=== PATIENT | female | born 1965 | race Caucasian/White ===

== ENCOUNTER → 2020-05-29 14:54 | Outpatient (BNVA) | payer OTHER, SELFPAY | PROVIDERS: PCP Internal Medicine; Visit Provider Urology | DX: Z76.89 Persons encountering health services in other specified circumstances (principal) ==

== ENCOUNTER 2020-05-30 | Outpatient (REF) | payer OTHER, SELFPAY ==
[2020-06-16 05:47] LABS: Stone Source KIDNEY
== END 2020-05-30 00:01 | disposition home or self-care (01) ==
LOC: HO.LNP
PROVIDERS: Visit Provider Urology
DX: N20.0 Calculus of kidney (principal)
CPT/HCPCS: 82365; 88300

== ENCOUNTER 2020-06-19 06:06 | Day surgery (SDC) | payer OTHER, SELFPAY ==
[2020-06-12 15:46] VITALS: BMI 25.1
--- NOTE | 2020-06-19 06:11 | XR_ITS ---
EXAMINATION: XR ABDOMEN KUB CLINICAL INDICATION: Stones. COMPARISON: There is a punctate radiopaque density midpole left kidney TECHNIQUE: AP view of the abdomen. FINDINGS: Is a punctate 2 mm radiopaque density lower pole left kidney. There is moderate stool overlying the right kidney. Moderate stool is also visualized in the pelvis no organomegaly. No gross bony abnormality. The soft tissues are unremarkable. XR/XR KUB IMPRESSION: Likely 2 mm radiopaque stone lower pole left kidney. There is moderate stool overlying the right kidney limiting evaluation. Moderate constipation.
[2020-06-19 06:47] VITALS: BP 156/97; PULSE 85; RESP 16; TEMP 36.1; O2SAT 98
--- NOTE | 2020-06-19 07:22 | HO.ANESPROP2 ---
FORMERLY [facility] Past Medical History Medical History HTN (hypertension) Ocular migraine Seasonal allergies Surgical History Surgical History Hx of cervical discectomy Hx of section Hx of colonoscopy Social History Social History Smoking Status: Never smoker Use of substances other than those prescribed or required for medical reasons: No Advance Directives: No Advance Directives Information Provided: No Advance Directives on File: No Recently lost weight without trying: No Meds Allergies Allergy/AdvReac Type Severity Reaction Status Date / Time No Known Allergies Allergy Verified 06/19/20 06:30 Home Medications Medication Instructions Recorded Confirmed Type pyridoxine (vitamin B6) 1 tab PO DAILY 06/12/20 06/12/20 History Exam Exam Date and Time: June 19, 2020 0722 Height,Weight and Vital Signs: Height 5 ft 11 in Weight 81.647 kg Last Vital Signs Temp 97.0 F 06/19/20 06:47 Pulse 85 06/19/20 06:47 Resp 16 06/19/20 06:47 BP 156/97 H 06/19/20 06:47 Pulse Ox 98 06/19/20 06:47 Airway Mallampati Class: II TM Dist: >3cm Neck ROM: Full Assessment and Plan Assessment Anesthesia Assessment: Anesthesia Plan Discussed and Chart Reviewed Final Anesthetic Review NPO: Yes ASA Class: II Final Preanesthetic Review: No Changes in Pt Med Stat, Meds/Allgs Chart Reviewed, Consent Obtained/Reviewed and Anes Risks/Benef Reviewed Patient Risk: Low Procedure Risk: Low Assessment/Block/Sedation in SS: Assess/Block/Sedation-SS Anesthetic Plan Anesthetic Plan: MAC: Disposition: Standard PACU
--- NOTE | 2020-06-19 07:31 | MHC.SHP ---
Pre-Procedural Eval Section A The patient is an INPATIENT: No Changes since office visit: No Cold of Flu in the past 2 weeks, No New Medical Problems, No Changes in Medication and No Patient answered all questions The History & Physical has been completed within 30 days and I have reviewed it.: Yes Section B Chief Complaint: kidney stone Allergies: Allergies Allergy/AdvReac Type Severity Reaction Status Date / Time No Known Allergies Allergy Verified 06/19/20 06:30 Plan I have reviewed the history and physical and performed a pertinent physical examination on my patient. No changes have occurred unless specified. Left ESWL
--- NOTE | 2020-06-19 07:35 | PM.OP ---
Brief Operative Note Date of Service: 06/19/20 Pre-op diagnosis: Left renal stone Post-op diagnosis: same Procedure: Left ESWL Surgeon: Delmer Brunson MD Anesthesia: MAC Estimated blood loss (mL): 0 Pathology: none sent Condition: stable Disposition: same day
--- NOTE | 2020-06-19 07:43 | W.PM.OPN ---
Operative Note Operative Note Date of Service: 06/19/20 Narrative: PreOperative Diagnosis: left Renal stones Post Operative Diagnosis: left Renal stones Procedure: ESWL Surgeon: Dr Delmer Brunson Anesthesia: mac/sedation Indications for procedure: They understand ESWL may be a staged procedure and subsequent intervention may be required based on imaging after ESWL. They also understand there is a risk of bleeding, infection, damage to adjacent organs. Procedure: After informed consent was verified the patient was brought to the operating room and placed in a supine position. Anesthesia was performed per protocol. Safety pause time-out was performed. Imaging was in the room and laterality confirmed. ESWL was performed. The 1st 500 shocks were performed at 60 hertz. These were performed with increasing power. Once maximum power was reached the rate was increased to 180 hertz. A total of 2500 shocks were given. Fluoroscopy showed stone disintegration. They tolerated procedure well and was transferred to the recovery area upon completion.
[2020-06-19 08:05] VITALS: BP 124/76; PULSE 61; RESP 16; TEMP 36.6; O2SAT 96
[2020-06-19 08:20] VITALS: BP 132/79; PULSE 56; RESP 20; TEMP 36.6; O2SAT 97
--- NOTE | 2020-06-19 08:58 | HO.POSTANES ---
Post Anesthesia Evaluation Post Anesthesia Evaluation Vital Signs: Vital Signs Temp Pulse Resp BP Pulse Ox 06/19/20 08:20 97.9 F 56 20 132/79 97 06/19/20 08:05 97.8 F 61 16 124/76 96 06/19/20 06:47 97.0 F 85 16 156/97 H 98 Anesthesia: Monitored Mental Status: Awake Pain Control: Satisfactory Nausea/Vomiting: None Hydration: Adequate Anesthesia-Related Issues: No Anes. Related Issues
== END 2020-06-19 08:56 ==
LOC: HO.SSS 06:06
PROVIDERS: PCP Internal Medicine; Visit Provider Urology
PROC: (CPT 50590; principal; 2020-06-19 07:30)
DX: N20.0 Calculus of kidney (principal); I10 Essential (primary) hypertension; Z79.899 Other long term (current) drug therapy
CPT/HCPCS: 50590; 74018; J1885; J2405; J3010

== ENCOUNTER → 2020-07-24 14:27 | Outpatient (BNVA) | payer OTHER, SELFPAY | PROVIDERS: PCP Internal Medicine; Visit Provider Urology ==

== ENCOUNTER 2020-11-12 08:59 | Outpatient (REF) | payer OTHER, SELFPAY ==
[2020-11-12 10:27] LABS: MANUAL DIFF FLAG NO
[2020-11-12 10:29] LABS: Basophils Percent Auto 0.6 % (0-2); Eosinophils Absolute Auto 0.1 X10*3/uL (0.0-0.4); Eosinophils Percent Auto 2.3 % (0-4); Hematocrit 40.4 % (37-47); Hemoglobin 13.4 g/dl (12.0-16.0); Imm Gran Abs Auto 0.01 X10*3/uL (0.00-0.03); Imm Gran Pct Auto 0.2 % (0.0-0.4); Lymphocytes Percent Auto 41.7 % (20-40); Mean Corpuscular HGB Conc 33.2 g/dl (31.0-35.0); Mean Corpuscular Hemoglobin 29.4 pg (27.0-33.0); Mean Corpuscular Volume 88.6 fL (80-98); Mean Platelet Volume 9.7 fL (9.4-12.3); Monocytes Absolute Auto 0.4 X10*3/uL (0.1-1.2); Monocytes Percent Auto 7.9 % (2-11); Neutrophils Absolute Auto 2.2 X10*3/uL (2.0-8.3); Neutrophils Percent Auto 47.3 % (45-73); Platelet Count 269 X10*3/uL (160-400); Red Blood Count 4.56 X10*6/uL (4.20-5.50); White Blood Count 4.7 X10*3/uL (4.8-10.8)
[2020-11-12 11:00] LABS: Alanine Aminotransferase 17 U/L (0-31); Albumin Level 4.2 g/dL (3.5-5.0); Alkaline Phosphatase 99 U/L (39-117); Anion Gap 12 (12-20); Aspartate Amino Transferase 25 U/L (5-31); Bilirubin Total 0.9 mg/dL (0.0-1.0); Blood Urea Nitrogen 15 mg/dL (9-16); Calcium 9.1 mg/dL (8.4-10.2); Carbon Dioxide 25 mmol/L (22-29); Chloride 108 mmol/L (96-108); Cholesterol 193 mg/dL; Estimated Glomerular Filt Rate > 60; Glucose Fasting 98 mg/dL (60-99); HDL Cholesterol 53 mg/dL; LDL Cholesterol Calculated 117 mg/dl; Potassium 3.8 mmol/L (3.3-5.1); Sodium 141 mmol/L (135-145); Total Protein 6.8 g/dL (6.5-8.0); Triglycerides 117 mg/dL
== END 2020-11-12 09:00 | disposition home or self-care (01) ==
LOC: HO.10HDL 08:59
PROVIDERS: PCP Internal Medicine; Visit Provider Internal Medicine
DX: Z00.00 Encounter for general adult medical examination without abnormal findings (principal)
CPT/HCPCS: 36415; 80053; 80061; 85025

== ENCOUNTER 2021-01-15 09:57 | Outpatient (REF) | payer OTHER, SELFPAY ==
--- NOTE | ~2021-01-15 | US_ITS ---
EXAMINATION: US RETROPERITONEAL LIMITED (RENAL ONLY) CLINICAL INFORMATION: Calculus of kidney. COMPARISON: KUB 06/19/2020. TECHNIQUE: Real-time imaging of the kidneys. FINDINGS: RIGHT KIDNEY: 13.0 x 4.1 x 5.5 cm (SAG x AP x TRV). The kidney is normal in size, contour, and echogenicity. Renal cortical thickness is normal. No calculi or focal parenchymal lesions. No hydronephrosis. LEFT KIDNEY: 12.8 x 6.0 x 5.2 cm (SAG x AP x TRV). The kidney is normal in size, contour, and echogenicity. Renal cortical thickness is normal. No calculi or focal parenchymal lesions. No hydronephrosis. US/US renal BI IMPRESSION: No stone seen.
== END 2021-01-15 09:58 | disposition home or self-care (01) ==
LOC: HO.US 09:57
PROVIDERS: PCP Internal Medicine; Visit Provider Urology
DX: N20.0 Calculus of kidney (principal)
CPT/HCPCS: 76775

== ENCOUNTER → 2021-03-07 14:13 | Outpatient (BNVA) | payer OTHER, SELFPAY | PROVIDERS: Visit Provider Urology ==

== ENCOUNTER 2021-08-21 16:29 | Outpatient (REF) | payer OTHER, SELFPAY ==
--- NOTE | ~2021-08-21 | US_ITS ---
EXAMINATION: US RETROPERITONEAL LIMITED (RENAL ONLY) CLINICAL INFORMATION: Calculus of kidney. COMPARISON: Renal ultrasound 01/15/2021. X-ray KUB 06/19/2020. TECHNIQUE: Real-time imaging of the kidneys. FINDINGS: RIGHT KIDNEY: 12.1 x 4.9 x 5.9 cm (SAG x AP x TRV). The kidney is normal in size, contour, and echogenicity. Renal cortical thickness is normal. No calculi or focal parenchymal lesions. No hydronephrosis. LEFT KIDNEY: 12.1 x 6.4 x 5.1 cm (SAG x AP x TRV). The kidney is normal in size, contour, and echogenicity. Renal cortical thickness is normal. No focal parenchymal lesions. Mild fullness of the pelvicalyceal system is present. There are 2 echogenic foci identified, both at the superior pole, measures 0.2 x 0.3 and 0.3 x 0.4 cm respectively, most consistent with nonobstructing calculi. US/US renal BI IMPRESSION: 1. Two sub-5 mm echogenic foci are noted at the superior pole of the left kidney, most consistent with nonobstructing calculi. Mild fullness of the left renal collecting system is also noted.. 2. Sonographically unremarkable right kidney.
== END 2021-08-21 16:30 | disposition home or self-care (01) ==
LOC: HO.US 16:29
PROVIDERS: PCP Internal Medicine; Visit Provider Urology
DX: N20.0 Calculus of kidney (principal)
CPT/HCPCS: 76775

== ENCOUNTER → 2021-09-03 12:48 | Outpatient (BNVA) | payer OTHER, SELFPAY | PROVIDERS: PCP Internal Medicine; Visit Provider Urology | DX: Z13.89 Encounter for screening for other disorder (principal) ==

== ENCOUNTER 2022-01-15 06:39 | Outpatient (REF) | payer OTHER, SELFPAY ==
[2022-01-15 06:56] LABS: MANUAL DIFF FLAG NO
[2022-01-15 07:37] LABS: Basophils Absolute Auto 0.1 X10*3/uL (0.0-0.2); Basophils Percent Auto 0.9 % (0-2); Eosinophils Absolute Auto 0.2 X10*3/uL (0.0-0.4); Eosinophils Percent Auto 3.2 % (0-4); Hematocrit 41.2 % (37.0-47.0); Hemoglobin 13.8 g/dl (12.0-16.0); Imm Gran Abs Auto 0.02 X10*3/uL (0.00-0.03); Imm Gran Pct Auto 0.4 % (0.0-0.4); Lymphocytes Absolute Auto 2.2 X10*3/uL (1.2-4.9); Lymphocytes Percent Auto 40.4 % (20-40); Mean Corpuscular HGB Conc 33.5 g/dl (31.0-35.0); Mean Corpuscular Hemoglobin 29.5 pg (27.0-33.0); Mean Platelet Volume 9.3 fL (9.4-12.3); Monocytes Absolute Auto 0.5 X10*3/uL (0.1-1.2); Monocytes Percent Auto 8.4 % (2-11); Neutrophils Absolute Auto 2.5 x10*3/uL (2.0-8.3); Neutrophils Percent Auto 46.7 % (45-73); Platelet Count 271 X10*3/uL (160-400); Red Blood Count 4.68 X10*6/uL (4.20-5.50); Red Cell Distribution Width 12.8 % (11.0-16.0); White Blood Count 5.4 X10*3/uL (4.8-10.8)
[2022-01-15 07:55] LABS: Alanine Aminotransferase 20 U/L (0-31); Albumin Level 4.1 g/dL (3.5-5.0); Alkaline Phosphatase 99 U/L (39-117); Anion Gap 14 (12-20); Aspartate Amino Transferase 26 U/L (5-31); Blood Urea Nitrogen 14 mg/dL (9-16); Carbon Dioxide 26 mmol/L (22-29); Chloride 106 mmol/L (96-108); Cholesterol 208 mg/dL; Estimated Glomerular Filt Rate > 60; Glucose Fasting 106 mg/dL (60-99); HDL Cholesterol 56 mg/dL; LDL Cholesterol Calculated 125 mg/dl; Potassium 3.7 mmol/L (3.3-5.1); Sodium 142 mmol/L (135-145); Triglycerides 137 mg/dL
[2022-01-15 08:04] LABS: Vitamin D 25-OH Total 35.2 ng/mL (>30)
== END 2022-01-15 06:40 | disposition home or self-care (01) ==
LOC: HO.LAB 06:39
PROVIDERS: PCP Internal Medicine; Visit Provider Internal Medicine
DX: Z00.00 Encounter for general adult medical examination without abnormal findings (principal); E55.9 Vitamin D deficiency, unspecified; N20.0 Calculus of kidney
CPT/HCPCS: 36415; 80053; 80061; 82306; 85025

== ENCOUNTER 2022-03-12 15:49 | Outpatient (REF) | payer OTHER, SELFPAY ==
--- NOTE | ~2022-03-12 | US_ITS ---
EXAMINATION: US RETROPERITONEAL LIMITED (RENAL ONLY) CLINICAL INFORMATION: Calculus of kidney. COMPARISON: Renal ultrasound 08/21/2021 and 01/15/2021. X-ray KUB 06/19/2020. TECHNIQUE: Real-time imaging of the kidneys. FINDINGS: RIGHT KIDNEY: 11.8 x 5.5 x 5.3 cm (SAG x AP x TRV). The kidney is normal in size, contour, and echogenicity. Renal cortical thickness is normal. No calculi or focal parenchymal lesions. No hydronephrosis. LEFT KIDNEY: 12.0 x 6.4 x 6.0 cm (SAG x AP x TRV). The kidney is normal in size, contour, and echogenicity. Renal cortical thickness is normal. No focal parenchymal lesions or hydronephrosis. 5 mm nonobstructing upper pole renal stone. Fullness of the left renal collecting system may reflect peripelvic renal cysts, alternatively pelviectasis. US/US renal BI IMPRESSION: 1. 5 mm nonobstructing left upper pole renal stone unchanged. 2. Fullness of the left renal collecting system may reflect peripelvic renal cysts, alternatively pelviectasis.
== END 2022-03-12 15:50 | disposition home or self-care (01) ==
LOC: HO.US 15:49
PROVIDERS: Visit Provider Internal Medicine
DX: N20.0 Calculus of kidney (principal)
CPT/HCPCS: 76775

== ENCOUNTER 2022-12-24 09:48 | Outpatient (REF) | payer SELFPAY ==
[2022-12-24 10:45] LABS: MANUAL DIFF FLAG NO
[2022-12-24 10:53] LABS: Basophils Absolute Auto 0.1 X10*3/uL (0.0-0.2); Basophils Percent Auto 0.9 % (0-2); Eosinophils Absolute Auto 0.1 X10*3/uL (0.0-0.4); Eosinophils Percent Auto 1.7 % (0-4); Hematocrit 42.4 % (37.0-47.0); Lymphocytes Absolute Auto 1.6 X10*3/uL (1.2-4.9); Lymphocytes Percent Auto 29.4 % (20-40); Mean Platelet Volume 9.9 fL (9.4-12.3); Monocytes Absolute Auto 0.4 X10*3/uL (0.1-1.2); Neutrophils Absolute Auto 3.3 x10*3/uL (2.0-8.3); Platelet Count 264 X10*3/uL (160-400); Red Blood Count 4.82 X10*6/uL (4.20-5.50); Red Cell Distribution Width 13.1 % (11.0-16.0); White Blood Count 5.4 X10*3/uL (4.8-10.8)
[2022-12-24 10:54] LABS: Appearance Urine Clear; Color Urine Yellow; Glucose Urine UA Negative (Negative); Leukocyte Esterase Urine Negative (Negative); Nitrite Urine Negative (Negative); Specific Gravity - Urine <= 1.005 (1.005-1.025); Urine Blood Negative (Negative); Urine Ketones Negative (Negative); Urine Protein Negative (Neg-Trace)
[2022-12-24 11:08] LABS: Alanine Aminotransferase 18 U/L (0-31); Albumin Level 4.2 g/dL (3.5-5.0); Alkaline Phosphatase 107 U/L (39-117); Anion Gap 12 (12-20); Aspartate Amino Transferase 24 U/L (5-31); Bilirubin Total 1.1 mg/dL (0.0-1.0); Blood Urea Nitrogen 14 mg/dL (9-16); Calcium 10.1 mg/dL (8.4-10.2); Carbon Dioxide 28 mmol/L (22-29); Chloride 105 mmol/L (96-108); Cholesterol 223 mg/dL; Estimated Glomerular Filt Rate > 60; Glucose Fasting 104 mg/dL (60-99); HDL Cholesterol 57 mg/dL; LDL Cholesterol Calculated 142 mg/dl; Potassium 3.5 mmol/L (3.3-5.1); Sodium 141 mmol/L (135-145); Total Protein 7.7 g/dL (6.5-8.0); Triglycerides 121 mg/dL
== END 2022-12-24 09:49 | disposition home or self-care (01) ==
LOC: HO.10HDL 09:48
PROVIDERS: Visit Provider Internal Medicine
DX: E78.00 Pure hypercholesterolemia, unspecified (principal); J30.1 Allergic rhinitis due to pollen; Z87.442 Personal history of urinary calculi
CPT/HCPCS: 36415; 80053; 80061; 81003; 85025

== ENCOUNTER 2023-03-12 13:58 | Outpatient (REF) | payer OTHER, SELFPAY ==
[2023-03-12 14:09] LABS: MANUAL DIFF FLAG NO
[2023-03-12 14:21] LABS: Basophils Percent Auto 0.6 % (0-2); Eosinophils Absolute Auto 0.4 X10*3/uL (0.0-0.4); Eosinophils Percent Auto 5.3 % (0-4); Hematocrit 41.6 % (37.0-47.0); Hemoglobin 14.1 g/dl (12.0-16.0); Imm Gran Abs Auto 0.02 X10*3/uL (0.00-0.03); Imm Gran Pct Auto 0.3 % (0.0-0.4); Lymphocytes Absolute Auto 1.6 X10*3/uL (1.2-4.9); Lymphocytes Percent Auto 22.7 % (20-40); Mean Corpuscular HGB Conc 33.9 g/dl (31.0-35.0); Mean Corpuscular Hemoglobin 30.2 pg (27.0-33.0); Mean Corpuscular Volume 89.1 fL (80.0-98.0); Mean Platelet Volume 9.6 fL (9.4-12.3); Monocytes Absolute Auto 0.5 X10*3/uL (0.1-1.2); Monocytes Percent Auto 6.7 % (2-11); Neutrophils Absolute Auto 4.5 x10*3/uL (2.0-8.3); Neutrophils Percent Auto 64.4 % (45-73); Platelet Count 249 X10*3/uL (160-400); Red Blood Count 4.67 X10*6/uL (4.20-5.50); Red Cell Distribution Width 12.9 % (11.0-16.0)
[2023-03-12 14:56] LABS: Alanine Aminotransferase 16 U/L (0-31); Albumin Level 4.3 g/dL (3.5-5.0); Alkaline Phosphatase 105 U/L (39-117); Anion Gap 10 (12-20); Aspartate Amino Transferase 23 U/L (5-31); Bilirubin Total 0.7 mg/dL (0.0-1.0); Blood Urea Nitrogen 12 mg/dL (9-16); C Reactive Protein 0.48 mg/dL (< or = 0.50); Calcium 9.9 mg/dL (8.4-10.2); Carbon Dioxide 28 mmol/L (22-29); Chloride 106 mmol/L (96-108); Estimated Glomerular Filt Rate > 60; Glucose Random 116 mg/dL (60-115); Potassium 3.3 mmol/L (3.3-5.1); Sodium 141 mmol/L (135-145); Total Protein 7.6 g/dL (6.5-8.0)
[2023-03-16 01:44] LABS: Lyme Abs Screen <0.90 index
== END 2023-03-12 13:59 | disposition home or self-care (01) ==
LOC: HO.LAB 13:58
PROVIDERS: PCP Internal Medicine; Visit Provider Internal Medicine
DX: R21 Rash and other nonspecific skin eruption (principal); T14.8XXA Other injury of unspecified body region, initial encounter; W57.XXXA Bitten or stung by nonvenomous insect and other nonvenomous arthropods, initial encounter
CPT/HCPCS: 36415; 80053; 82550; 85025; 86140; 86617; 86618

== ENCOUNTER 2023-04-06 15:03 | Outpatient (REF) | payer OTHER, SELFPAY ==
--- NOTE | ~2023-04-06 | XR_ITS ---
EXAMINATION: XR ABDOMEN KUB CLINICAL INFORMATION: Calculus of kidney. COMPARISON: Renal ultrasound 03/12/2022. TECHNIQUE: Two AP views of the abdomen. FINDINGS: Levoscoliosis of the lumbar spine with degenerative changes. Moderate to large amount of stool in the colon. Nonobstructive bowel gas pattern. 5 mm calculus overlies the interpolar region of the left kidney. Previous ultrasound demonstrated a 5 mm left renal calculus. Limited visualization of the bilateral kidneys due to overlying bowel. XR/XR KUB IMPRESSION: 5 mm calculus overlies the interpolar region of the left kidney. Previous ultrasound demonstrated a 5 mm left renal calculus. Limited visualization of the bilateral kidneys due to overlying bowel.
== END 2023-04-06 15:04 | disposition home or self-care (01) ==
LOC: HO.XRAY 15:03
PROVIDERS: PCP Internal Medicine; Visit Provider Urology
DX: N20.0 Calculus of kidney (principal)
CPT/HCPCS: 74018

== ENCOUNTER 2023-04-16 08:39 | Outpatient (AMB) | payer OTHER, SELFPAY ==
--- OUTSIDE RECORDS SUMMARY | 2023-04-16 08:41 | XMS_ITS | Continuity of Care Document ---
Author Name Unknown Organization [facility] ter Address [address] [place] [id number]- Care Team Providers Care Beater Operator Name Role Phone Damian Sanchez MD Primary Care Physician Encounter [facility] [place] Date(s): 03/12/20 - 03/13/[address] [address]- [facility] Discharge Disposition: A-D/C Home Attending Physician: Abril Moreno MD Admitting Physician: Axel KING, Amelia Rosas Referring Physician: Not on Staff, Referring MD Allergies, Adverse Reactions, Alerts Substance Reaction Severity Status NKA Active Immunizations Given and Recorded Vaccine Date Status Refusal Reason tetanus/diphtheria/pertussis, acel(Tdap) 07/09/09 Given Medications Keflex monohydrate 500 mg oral capsule 1 capsule = 500 mg, By Mouth, 4 times a day, for 5 days, # 20 capsule, 0 Refills, Acute 03/18/20 11:58:00 EST, 03/13/20 11:58:00 EDT, Capsule, [facility], 179, cm, 03/13/20 11:27:00EDT, Height, 79.9, kg, 03/12/20 23:42:00 EDT, Dry Weight Start Date: 03/13/20 Stop Date: 03/18/20 Status: Ordered levocetirizine 5 mg oral tablet 1 tablet = 5 mg, By Mouth, Daily in PM, # 30 tablet, 0 Refills, Maintenance, 03/12/20 23:59:00 EDT,Tablet Start Date: 03/12/20 Status: Ordered Nasacort Allergy 24HR 55 mcg/inh nasal spray 1 sprays, Nares, Both, Daily, 0 Refills, Maintenance, 03/13/20 0:00:00 EDT Start Date: 03/13/20 Status: Ordered No Home Meds Maintenance, 03/12/20 23:26:00 EDT, Supply Start Date: 03/12/20 Status: Ordered oxyCODONE 5 mg oral tablet 5 mg, 1, tablet, By Mouth, Every 6 hours, PRN, for 3 days, # 12 tablet, Refills 0, Tot. Refills 0, Acute 03/16/20 11:59:00 EDT, as needed for pain, 03/13/20 11:59:00 EDT, Route to Pharmacy Electronically, [facility], Partial fill upon pa... Start Date: 03/13/20 Stop Date: 03/16/20 Status: Ordered tamsulosin 0.4 mg oral capsule 0.4 mg, 1, capsule, By Mouth, Daily, # 30 capsule, Refills 0, Tot. Refills 0, Maintenance, 03/13/2011:58:00 EDT, Route to Pharmacy Electronically, [facility], 179, cm, 03/13/20 11:27:00 EDT, Height, 79.9, kg, 03/12/20 23:42:00 EDT, Dry... Start Date: 03/13/20 Status: Ordered Procedures Procedure Date Related Diagnosis Body Site Status Caesarean delivery x2 Com pleted Vital Signs Most recent to oldest [Reference Range]: 1 2 3 Height 179 cm (03/13/20 11:27 AM) 179 cm (03/13/20 8:23 AM) 179 cm (03/13/20 5:26 AM) Weight 79.9 kg (03/12/20 11:42 PM) 84.5 kg (03/12/20 11:41 PM) 84.6 kg (03/12/20 3:10 PM) Oxygen Saturation [94-100 %] 99 % (03/13/20 11:27 AM) 99 % (03/13/20 8:23 AM) 98 % (03/13/20 5:26 AM) Pulse Rate [55-90 bpm] 74 bpm (03/13/20 11:27 AM) 84 bpm (03/13/20 8:23 AM) 65 bpm (03/13/20 5:26 AM) Body Mass Index [18.5-24.99] 24.94 (03/12/20 11:42 PM) 26.4 *H* (03/12/20 2:37 PM) Blood Pressure [90-138/55-84 mm Hg] 141/79mm Hg *H* (03/13/20 11:27 AM) 146/74mm Hg *H* (03/13/20 8:23 AM) 149/76mm Hg *H* (03/13/20 5:26 AM) Respiratory Rate [16-30 br/min] 18 br/min (03/13/20 12:33 PM) 20 br/min (03/13/20 11:27 AM) 18 br/min (03/13/20 9:00 AM) Temperature [96.8-100.4 DegF] 98.0 DegF (03/13/20 11:27 AM) 98.7 DegF (03/13/20 8:23 AM) 98.2 DegF (03/13/20 5:26 AM) Mode of Delivery (Oxygen) Room air (03/13/20 11:27 AM) Room air (03/13/20 8:23 AM) Room air (03/13/20 5:26 AM) Blood pressure sites Arm, right (03/13/20 11:27 AM) Arm, right (03/13/20 8:23 AM) Arm, right (03/13/20 5:26 AM) Temperature Route Oral (03/13/20 11:27 AM) Oral (03/13/20 8:23 AM) Oral (03/13/20 5:26 AM) Dry Weight 79.9 kg (03/12/20 11:42 PM) 84.6 kg (03/12/20 3:10 PM) 84.6 kg (03/12/20 2:37 PM) Weight Obtained Via Patient/family stated (03/12/20 11:42 PM) Bed scale (03/12/20 11:41 PM) Standing scale (03/12/20 2:37 PM) Dry Weight Obtained Via Patient/family stated (03/12/20 11:42 PM) Standing scale (03/12/20 2:37 PM) Social History Social History Type Response Smoking Status Never (less than 100 in lifetime) entered on: 03/12/20 Sex
--- NOTE | 2023-04-16 08:55 | A.OFFVIS_ITS ---
Intake Intake Visit Reasons: discuss imaging Allergies No Known Allergies Allergy (Verified 03/23/22 16:02) Medication List - Last Reconciled 04/16/23 by Delmer Brunson MD allopurinol 100 mg PO DAILY 90 days pyridoxine (vitamin B6) 100 mg PO DAILY 90 days sodium fluoride-pot nitrate 1.1-5 % (PreviDent 5000 Enamel Protect) dental BEDTIME tamsulosin 0.4 mg PO BEDTIME tramadol 50 mg PO Q6H PRN HPI HPI Comments History of Present Illness Details Ann is a very pleasant female. She is a patient of Dr. Sanchez. She is seen for the following urologic conditions - nephrolithiasis Telemedicine Evaluation 15 min Consultation Stratus[employer] Corby Video attempted Small stone remains on left side on KUB Continue vitamin B6 Twelve month follow-up US Nephrolithiasis Stopped beets which may have been cause Urolithiasis was diagnosed - February 2020 after ER visit The patient previously had kidney stones whose composition w - May 2020 mixed calcium oxalate 80% monohydrate Laboratory investigations include - no recent labs 24 Hour urine evaluation - none on file Prior treatment(s) include - June 2020 ESWL left side Prior imaging includes - a CT - stone protocol 03/05 inflammati on with passage of stone on left, right punctate stones, 6 mm stone mid pole left - 03/06 renal ultrasound no stones seen - 09/05 renal ultrasound question of smal l stone left side - 03/07 renal ultrasound 5 mm left side - 03/08 Current therapeutic plan will be - dietary changes, fluid changes, vitami n B6 PFSH Medical History HTN (hypertension) Ocular migraine Seasonal allergies Surgical History Hx of cervical discectomy Hx of section Hx of colonoscopy Assessment & Plan Assessment & Plan (1) Nephrolithiasis: Code(s): N20.0 - Calculus of kidney Plan 12 month Follow-up ultrasound Orders: Orders US renal BI 364 Days N20.0 - Calculus of kidney Medications: Changed From pyridoxine (vitamin B6) 100 mg PO DAILY 90 days 90 tabs 3RF N20.0 - Calculus of kidney To pyridoxine (vitamin B6) 50 mg PO DAILY 90 tabs 3RF 90 days N20.0 - Calculus of kidney Patient Instructions: Imaging studies, laboratory and physical exam results were discussed and reviewed in detail. No major barriers to patient understanding were identified. An opportunity to ask questions regarding the treatment plan was provided. All questions were answered. The patient expressed understanding and agreement with the above treatment plan. The patient is aware they should contact our office by phone for worsening of their current condition or the appearance of new urologic symptoms. Compliance is encouraged with any medications and followup testing that is ordered. It is a privilege to participate in the urologic care of your patient. If you have any questions or concerns regarding treatment for the above conditions, or other urologic issues, please do not hesitate to contact me. The office telephone contact is [phone]. This note is constructed using voice recognition software. While every effort has been made to ensure accuracy tire fixer errors may have been included. Yours sincerely, Dr Delmer Brunson MD, RAKESH [facility] - Urology Providers of Expert, Compassionate Care for the Genitourinary System Telehealth Telehealth Location of provider rendering services: practice address Location of patient: address on file Patient Identification confirmed using: Name, : Yes Telehealth method: video Patient verbally consented to treatment: Yes Patient verbally consented to billing insurance company: Yes Patient informed of any privacy concerns related to visit: Yes Coding Level of Care Code Tele Est Pt Level 4 (64180) Diagnoses Nephrolithiasis N20.0
== END 2023-04-16 09:22 | disposition home or self-care (01) ==
LOC: HO.HUSH 08:39
PROVIDERS: PCP Internal Medicine; Visit Provider Urology
DX: N20.0 Calculus of kidney (principal)
CPT/HCPCS: 99213

== ENCOUNTER → 2023-04-16 08:39 | Outpatient (BNVA) | payer OTHER, SELFPAY | PROVIDERS: PCP Internal Medicine; Visit Provider Urology ==

== ENCOUNTER 2023-09-02 12:50 | Day surgery (SDC) | payer OTHER, SELFPAY ==
[2023-08-27 14:02] VITALS: BMI 25.4
[2023-09-02 13:29] VITALS: BMI 25.1
[2023-09-02 13:36] VITALS: BP 175/91; PULSE 79; RESP 16; TEMP 36.6; O2SAT 99
--- NOTE | 2023-09-02 13:56 | P.CONAN_ITS ---
FORMERLY [facility] Active Problems Active Problems: All Active Problems Nephrolithiasis (Acute) Past Medical History Medical History Renal calculi Ocular migraine Seasonal allergies HTN (hypertension) Family History Family history of problems with anesthesia: No Surgical History Surgical History Hx of lithotripsy Hx of colonoscopy Hx of cervical discectomy Hx of section History of Problems with Anesthesia: No Social History Social History (Updated 08/27/23 @ 14:03 by Veda Goodman RN) Patient Tobacco Use Status: Never used Tobacco Use of substances other than those prescribed or required for medical reasons: No Are you DNR?: No Advance Directives: No Advance Directives Information Provided: Yes Meds Allergies Allergy/AdvReac Type Severity Reaction Status Date / Time No Known Allergies Allergy Verified 09/02/23 13:27 Active Medications: Current Medications Sodium Biphosphate/Sodium Phosphate (Sodium Phosphate,Harlan-Dibasic 133 Ml Enema) 133 ml WI ONCE PRN PRN Reason: Poor Colonoscopy Prep Results Home Medications ?Medication ?Instructions ?Recorded ?Confirmed ?Last Taken ?Type pyridoxine (vitamin B6) 50 mg 50 mg PO DAILY 08/27/23 09/02/23 Unknown History tablet Exam Height,Weight and Vital Signs: Height 5 ft 11 in Weight 81.647 kg Last Vital Signs Temp 97.8 F 09/02/23 13:36 Pulse 79 09/02/23 13:36 Resp 16 09/02/23 13:36 BP 175/91 H 09/02/23 13:36 Pulse Ox 99 09/02/23 13:36 O2 Del Method Room Air 09/02/23 13:36 Airway Mallampati Class: III TM Dist: >3cm Neck ROM: Full Assessment and Plan Assessment Anesthesia Assessment: Anesthesia Plan Discussed and Chart Reviewed Final Anesthetic Review Family History of Problems with Anesthesia: No History of Problems with Anesthesia: No NPO: Yes ASA Class: II Final Preanesthetic Review: No Changes in Pt Med Stat, Meds/Allgs Chart Reviewed, Consent Obtained/Reviewed and Anes Risks/Benef Reviewed Patient Risk: Low Procedure Risk: Low Anesthetic Plan Anesthetic Plan: TIVA Disposition: Standard PACU
--- NOTE | 2023-09-02 15:10 | PM.OP ---
Brief Operative Note Date of Service: 09/02/23 Pre-op diagnosis: Screening Post-op diagnosis: other (Diverticulosis) Procedure: Colonoscopy to the cecum and TI Surgeon: Ismael Chun MD Anesthesia: MAC Was an Therapeutic Recreation Leader used for this Procedure?: No Estimated blood loss (mL): 0 Pathology: none sent Condition: stable Disposition: PACU
[2023-09-02 15:12] VITALS: BP 126/80; PULSE 72; RESP 18; TEMP 36.4; O2SAT 99
[2023-09-02 15:30] VITALS: BP 159/98; PULSE 68; RESP 20; TEMP 36.2; O2SAT 98
--- NOTE | 2023-09-02 17:55 | OP_ITS ---
DATE OF SERVICE: 09/02/2023 SURGEON: Ismael Chun MD INDICATIONS: The patient presents for evaluation of colorectal cancer screening and family history of colon cancer. Full consent has been obtained from her for this, including risks of bleeding and perforation. PREOPERATIVE DIAGNOSIS: POSTOPERATIVE DIAGNOSIS: Colorectal cancer screening, family history of colon cancer, sigmoid diverticulosis, and internal hemorrhoids. PROCEDURE PERFORMED: Colonoscopy to cecum and terminal ileum. ESTIMATED BLOOD LOSS: COMPLICATIONS: ANESTHESIA: Monitored anesthesia care. ASSISTANTS: SPECIMENS: PREOPERATIVE DIAGNOSES: Colorectal cancer screening and family history of colon cancer. DESCRIPTION OF PROCEDURE: The patient was placed in left lateral decubitus position. The digital rectal exam revealed no abnormalities. The Olympus video pediatric colonoscope was then entered into the rectum and advanced easily to the cecum. Once in the cecum, I did identify normal-appearing cecal pouch with appendiceal orifice and a normal-appearing ileocecal valve. The terminal ileum was cannulated and appeared normal. The scope was withdrawn back in the colon. The entire cecum and ileocecal valve appeared normal. The scope was slowly withdrawn assessing all mucosal surfaces carefully. Preparation was excellent. I did not visualize any sign of polyps, colitis, nor angiodysplasia. There was a mild amount of sigmoid diverticulosis. In the rectum, the scope was retroflexed, visualizing internal hemorrhoids, but no other pathology. The rectal mucosa appeared normal. The scope was straightened and withdrawn from the patient. She tolerated the procedure well and was returned to the recovery area in stable condition. IMPRESSION: 1. Mild sigmoid diverticulosis. 2. Internal hemorrhoids. PLAN: Given her family history, I would recommend a followup coloscopy in 5 years for further screening. She will, otherwise, see me on a p.r.n. basis. MD MYCHAL Huddleston/CALLIE / [phone]
== END 2023-09-02 15:45 | disposition home or self-care (01) ==
PROVIDERS: PCP Internal Medicine; Visit Provider Internal Medicine
PROC: 0DJD8ZZ Inspection of Lower Intestinal Tract, Via Natural or Artificial Opening Endoscopic (ICD-10-PCS; CPT 45378; principal; 2023-09-02 14:00)
DX: Z12.11 Encounter for screening for malignant neoplasm of colon (principal); K57.30 Diverticulosis of large intestine without perforation or abscess without bleeding; K64.8 Other hemorrhoids; Z87.19 Personal history of other diseases of the digestive system; Z80.0 Family history of malignant neoplasm of digestive organs
CPT/HCPCS: 45378; J2704

== ENCOUNTER 2023-12-27 10:22 | Outpatient (REF) | payer BC, SELFPAY ==
[2023-12-27 13:14] LABS: MANUAL DIFF FLAG NO
[2023-12-27 13:20] LABS: Basophils Absolute Auto 0.1 X10*3/uL (0.0-0.2); Basophils Percent Auto 1.1 % (0-2); Eosinophils Absolute Auto 0.1 X10*3/uL (0.0-0.4); Eosinophils Percent Auto 1.4 % (0-4); Hematocrit 42.8 % (37.0-47.0); Hemoglobin 14.2 g/dl (12.0-16.0); Imm Gran Abs Auto 0.01 X10*3/uL (0.00-0.03); Imm Gran Pct Auto 0.2 % (0.0-0.4); Lymphocytes Absolute Auto 1.9 X10*3/uL (1.2-4.9); Lymphocytes Percent Auto 30.5 % (20-40); Mean Corpuscular HGB Conc 33.2 g/dl (31.0-35.0); Mean Corpuscular Hemoglobin 29.5 pg (27.0-33.0); Mean Corpuscular Volume 88.8 fL (80.0-98.0); Mean Platelet Volume 9.4 fL (9.4-12.3); Monocytes Absolute Auto 0.4 X10*3/uL (0.1-1.2); Neutrophils Absolute Auto 3.8 x10*3/uL (2.0-8.3); Neutrophils Percent Auto 60.8 % (45-73); Platelet Count 305 X10*3/uL (160-400); Red Blood Count 4.82 X10*6/uL (4.20-5.50); Red Cell Distribution Width 12.7 % (11.0-16.0); White Blood Count 6.3 X10*3/uL (4.8-10.8)
[2023-12-27 13:41] LABS: Alanine Aminotransferase 18 U/L (0-31); Albumin Level 4.2 g/dL (3.5-5.0); Alkaline Phosphatase 92 U/L (39-117); Anion Gap 11 (12-20); Aspartate Amino Transferase 22 U/L (5-31); Bilirubin Total 0.7 mg/dL (0.0-1.0); Blood Urea Nitrogen 14 mg/dL (9-16); Calcium 9.2 mg/dL (8.4-10.2); Carbon Dioxide 28 mmol/L (22-29); Chloride 106 mmol/L (96-108); Cholesterol 214 mg/dL (<200); Estimated Glomerular Filt Rate > 60; Glucose Fasting 108 mg/dL (60-99); HDL Cholesterol 55 mg/dL (>40); LDL Cholesterol Calculated 128 mg/dL (<100); Potassium 3.4 mmol/L (3.3-5.1); Sodium 142 mmol/L (135-145); Total Protein 7.6 g/dL (6.5-8.0); Triglycerides 155 mg/dL (<150)
[2023-12-27 13:47] LABS: Thyroid Stimulating Hormone 1.19 uIU/mL (0.32-4.0); Vitamin D 25-OH Total 48.8 ng/mL (>30)
== END 2023-12-27 10:23 | disposition home or self-care (01) ==
LOC: HO.10HDL 10:22
PROVIDERS: Visit Provider Internal Medicine
DX: E55.9 Vitamin D deficiency, unspecified (principal); I10 Essential (primary) hypertension
CPT/HCPCS: 36415; 80053; 80061; 82306; 84439; 84443; 85025

== ENCOUNTER 2024-04-10 15:22 | Outpatient (REF) | payer BC, SELFPAY | END 2024-04-10 15:23 | disposition home or self-care (01) | LOC: HO.US 15:22 | PROVIDERS: PCP Internal Medicine; Visit Provider Urology | DX: N20.0 Calculus of kidney (principal) | CPT/HCPCS: 76775 ==

== ENCOUNTER 2024-04-18 14:53 | Outpatient (AMB) | payer BC, SELFPAY ==
--- NOTE | 2024-04-18 14:55 | A.OFFVIS_ITS ---
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 She is a patient of Dr. Sanchez. She is seen for the following urologic conditions - nephrolithiasis Small stone remains on left side on ultrasound Continue vitamin B6 Twelve month follow-up US Nephrolithiasis Stopped beets which may have been cause Urolithiasis was diagnosed - February 2020 after ER visit The patient previously had kidney stones whose composition w - May 2020 mixed calcium oxalate 80% monohydrate Laboratory investigations include - no recent labs 24 Hour urine evaluation - none on file Prior treatment(s) include - June 2020 ESWL left side Prior imaging includes - a CT - stone protocol 03/05 inflammation with passage of stone on left, right punctate stones, 6 mm stone mid pole left - 03/06 renal ultrasound no stones seen - 09/05 renal ultrasound question of small stone left side - 03/07 renal ultrasound 5 mm left side - 03/09 renal ultrasound 4 mm left Current therapeutic plan will be - dietary changes, fluid changes, vitamin B6 PFSH Medical History Renal calculi Ocular migraine Seasonal allergies HTN (hypertension) Surgical History Hx of lithotripsy Hx of colonoscopy Hx of cervical discectomy Hx of section Social History (Updated 08/27/23 @ 14:03 by Veda Goodman RN) Patient Tobacco Use Status: Never used Tobacco Review of Systems Const Denies chills and Denies fever(s) Card Reports no additional complaints and Denies syncope Resp Denies cough GI Denies abdominal pain and Denies heartburn Reports as per HPI and Denies change in libido Neuro Denies syncope Psych Denies change in libido Endo Denies change in libido Physical Exam Const General: cooperative, healthy appearing, comfortable and no acute distress Orientation/consciousness: patient oriented x3 HEENT Face and sinus: Yes normal facial exam Mouth: moist mucous membranes Neck Neck: Yes normal visual inspection, Yes full ROM and Yes trachea midline Chest Chest palpation & inspection: normal inspection of the chest Resp Effort & Inspection: normal respiratory effort, able to speak in complete sentences and no respiratory distress GI Inspection: Yes normal to inspection Back/Spine/Pelvis Cervical Spine: normal cervical lordosis Thoracic/Lumbar Spine: thoracic and lumbar spine normal to inspection Skin General skin exam: no rashes or lesions noted Neuro General: patient oriented x3, gait normal, tone normal and moves all extremities Extrem General: Yes normal to inspection and Yes capillary refill normal Assessment & Plan Assessment & Plan (1) Nephrolithiasis: Code(s): N20.0 - Calculus of kidney Category: Medical Plan Twelve month follow-up renal ultrasound Orders: Orders US renal BI 12 Months N20.0 - Calculus of kidney Patient Instructions: Imaging studies, laboratory and physical exam results were discussed and r eviewed in detail. No major barriers to patient understanding were identified. An opportunity to ask questions regarding the treatment plan was provided. All questions were answered. The patient expressed understanding and agreement with the above treatment plan. The patient is aware they should contact our office by phone for worsening of their current condition or the appearance of new urologic symptoms. Compliance is encouraged with any medications and followup testing that is ordered. It is a privilege to participate in the urologic care of your patient. If you have any questions or concerns regarding treatment for the above conditions, or other urologic issues, please do not hesitate to contact me. The office telephone contact is [phone]. This note is constructed using voice recognition software. While every effort has been made to ensure accuracy freezing room worker errors may have been included. Yours sincerely, Dr Delmer Brunson MD, RAKESH [facility] - Urology Providers of Expert, Compassionate Care for the Genitourinary System Coding Level of Care Code Est Pt Level 4 (38805) Diagnoses Nephrolithiasis N20.0
== END 2024-04-18 15:31 | disposition home or self-care (01) ==
PROVIDERS: PCP Internal Medicine; Visit Provider Urology
DX: N20.0 Calculus of kidney (principal)
CPT/HCPCS: 99214

== ENCOUNTER → 2024-04-18 14:53 | Outpatient (BNVA) | payer BC, SELFPAY | PROVIDERS: PCP Internal Medicine; Visit Provider Urology ==

== ENCOUNTER 2024-09-14 12:01 | Outpatient (AMB) | payer BC, SELFPAY ==
--- NOTE | 2024-09-14 12:06 | A.OFFPC_ITS ---
Vital Signs 09/14/24 12:12 09/14/24 14:50 Height 5 ft 10 in Weight 170 lb BMI 24.4 BP 140/82 H 135/78 Blood Pressure Location Lt brachial Rt brachial Position Sitting Sitting Pulse 81 Pulse Source Pulse Oximeter Temp 97.8 F Temp Source Oral Pulse Oximetry (%) 99 Oxygen Delivery Method Room Air Intake Visit Reasons: Hospital follow up Trouble Locater Required: No Accompanied by: Self / Same As Patient Allergies No Known Allergies Allergy (Verified 09/14/24 12:09) Medication List - Last Reconciled 09/14/24 by Lindsey Leon MD pyridoxine (vitamin B6) 50 mg PO DAILY 90 days Tobacco use date assessed: 09/14/24 Dental Screening Dental Screen Date: 09/14/24 Did you have a dental visit in the last 12 months?: Yes Did you have a dental problem in the last 6 months where you did not have access to dental care?: No Was dental information given to patient?: Patient has dentist HPI Hospital follow up HPI Details Patient presents for the patient's visit. She went to [facility] ER yesterday with a complaint of left flank pain. CT of the abdomen pelvis revealed 5 mm obstructing stone at the left ureterovesicular junction. Patient was also found to have 4 cm left adnexal cyst and lead python developer follow-up was recommended. Patient's flank pain has improved significantly. She denies nausea vomiting abdominal pain hematuria fever chills [facility] Medical History (Updated 09/14/24 @ 14:53 by Lindsey Leon MD) Ovarian cyst Nephrolithiasis Renal calculi Ocular migraine Seasonal allergies HTN (hypertension) Surgical History Hx of lithotripsy Hx of colonoscopy Hx of cervical discectomy Hx of section Social History Patient Tobacco Use Status: Never used Tobacco Cognitive needs: No Hearing needs: No Vision needs: No Questionnaire PHQ-9 Over the last 2 weeks, how often have you been bothered by any of the following problems? 1. Little interest or pleasure in doing things: not at all 2. Feeling down, depressed, or hopeless: not at all 3. Trouble falling or staying asleep, or sleeping too much: not at all 4. Feeling tired or having little energy: not at all 5. Poor appetite or overeating: not at all 6. Feeling bad about yourself - or that you are a failure or have let yourself or your family down: not at all 7. Trouble concentrating on things, such as reading the newspaper or watching television: not at all 8. Moving or speaking so slowly that other people could have noticed. Or the opposite - being so fidgety or restless that you have been moving around a lot more than usual: not at all 9. Thoughts that you would be better off or of hurting yourself in some way: not at all Total score: 0 Depression Screening Interpretation: Negative Depression Screening Done: Yes 59853 - PHQ-9 Billing: Yes Source: Developed by Drs. Ismael Bailey, Victorina Jones, Pierre Mcclellan and colleagues, with an educational elfego from [employer]. Thrive Questionnaire Date Thrive assessed: 09/14/24 I am a: Parent/Caregiver What is your living situation today?: I have a steady place to live Within the past 12 months, did the food you bought not last and you didn't have the money to get more?: Never true Within the past 12 months, did you worry whether your food would run out before you got money to buy more?: Never true Do you have trouble paying for medicines?: No Do you have trouble getting transportation to medical appointments?: No Do you have trouble paying your heating and electricity bill?: No Do you have trouble taking care of your child, family member or friend?: No Do you have trouble with day-to-day activities such as bathing, preparing meals, shopping, managing finances, etc.?: No Are you currently unemployed and looking for a job?: No Are you interested in more education?: No Please select the resources that you would like help with: None Currently or been in a relationship where the following occur: No concerns reported THRIVE Score: 0 AUDIT C Alcohol Use Questionnaire (AUDIT-C) 1. How often do you have a drink containing alcohol?: Never 3. How often do you have six or more drinks on one occasion?: Never Total Score: 0 Score Reviewed/Action Taken: Yes JOSE-7 AMB Questionnaire JOSE-7 Date JOSE - 7 assessed: 09/14/24 Feeling nervous, anxious, or on edge: 0 = Not at all Not being able to stop or control worryin = Not at all Worrying too much about different things: 0 = Not at all Trouble relaxin = Not at all Being so restless that it is hard to sit still: 0 = Not at all Becoming easily annoyed or irritable: 0 = Not at all Feeling afraid as if something awful might happen: 0 = Not at all Total JOSE-7 score (0-4 normal; 5-9 mild; 10-14 moderate; 15-21 severe): 0 Source: Developed by Drs. Ismael Bailey, Victorina Jones, Pierre Mcclellan and colleagues, with an educational elfego from [employer]. JOSE-7 Assessment Billing JOSE-7 Assessment Tool: JOSE-7 Assessment 40973 Physical exam (Primary Care) Vital Signs: Last Vital Signs Temp 97.8 F 09/14/24 12:12 Pulse 81 09/14/24 12:12 BP 140/82 H 09/14/24 12:12 Pulse Ox 99 09/14/24 12:12 Oxygen Delivery Method Room Air 09/14/24 12:12 BMI result Body Mass Index 24.4 Tobacco/Smoking Status: Tobacco use Status Tobacco use date assessed 09/14/24 09/14/24 12:11 Patient Tobacco Use Status Never used Tobacco 09/14/24 12:11 PHQ-9: PHQ-9 Score PHQ-9: Total score 0 09/14/24 12:11 Depression Screening Interpretation: Negative Thrive Assessment: Date of Thrive Assessment Date Thrive assessed 09/14/24 09/14/24 12:11 Currently or been in a relationship where the following occur: No concerns reported Const General: no acute distress HENMT Head: Yes normal to inspection Mouth: Normal oral and palatal mucosa present Neck Neck: Yes supple Resp Effort & Inspection: normal respiratory effort Auscultation: clear to auscultation bilaterally Cardio Rhythm: regular rhythm Heart sounds: S1 normal heart sound present and S2 normal heart sound present GI Inspection: Yes normal to inspection Palpation (GI): Soft to palpation Percussion: Yes normal to percussion Auscultation: normal bowel sounds General: Yes no CVA tenderness Back/Spine/Pelvis Back: no CVA tenderness Coding Level of Care Code New Pt Level 4 (73073) Diagnoses Nephrolithiasis N20.0 Ovarian cyst N83.209 HTN (hypertension) I10 Additional Codes JOSE-7 Assessment Billing - JOSE-7 Assessment Tool: JOSE-7 Assessment 77417 ([id number]) PHQ-9 - 13003 - PHQ-9 Billing: Yes ([id number]) Assessment & Plan Assessment & Plan (1) Nephrolithiasis: Comment: since 2021, Follow-up with urology annually, L side 5 mm, CT , f/u Dr. Brunson Code(s): N20.0 - Calculus of kidney Category: Medical Plan: Patient was advised to continue taking tamsulosin increase fluid intake and follow-up with Urology (2) Ovarian cyst: Comment: [address] scan 08/2024 Code(s): N83.209 - Unspecified ovarian cyst, unspecified side Category: Medical Plan: She will schedule an appointment with her digital strategist (3) HTN (hypertension): Comment: History of white coat Code(s): I10 - Essential (primary) hypertension Category: Medical Plan: Blood pressure is elevated today and patient reports history of white coat syndrome and refused to take medications in the past. lifestyle modifications including regular physical activity low-sodium diet discussed with the patient. she will return for physical Orders: Orders TSH reflex Free T4 Today Z00.00 - Encounter for general adult medical examination without abnormal findings UA w Microscopic Today Z00.00 - Encounter for general adult medical examination without abnormal findings Comprehensive [place]. Panel Fast Today Z00.00 - Encounter for general adult medical examination without abnormal findings Complete Blood Count Auto Diff Today Z00.00 - Encounter for general adult medical examination without abnormal findings Lipid Panel Today Z00.00 - Encounter for general adult medical examination without abnormal findings Vitamin D 25-OH Total Today Z00.00 - Encounter for general adult medical examination without abnormal findings Referrals RESEARCH ENVIRONMENTAL ENGINEER Referral N83.209 - Unspecified ovarian cyst, unspecified side Urology Referral N20.0 - Calculus of kidney
[2024-09-14 12:12] VITALS: BP 140/82; PULSE 81; TEMP 36.6; O2SAT 99; BMI 24.4
[2024-09-14 14:50] VITALS: BP 135/78
== END 2024-09-14 13:56 | disposition home or self-care (01) ==
LOC: HO.HMCC 12:01
PROVIDERS: PCP Internal Medicine; Visit Provider Internal Medicine
DX: N20.0 Calculus of kidney (principal); N83.209 Unspecified ovarian cyst, unspecified side; I10 Essential (primary) hypertension

== ENCOUNTER → 2024-09-14 12:01 | Outpatient (BNVA) | payer BC, SELFPAY | PROVIDERS: PCP Internal Medicine; Visit Provider Internal Medicine | DX: N20.0 Calculus of kidney (principal); I10 Essential (primary) hypertension; N83.209 Unspecified ovarian cyst, unspecified side | CPT/HCPCS: 96127 ==

== ENCOUNTER 2024-11-14 08:51 | Outpatient (REF) | payer BC, SELFPAY ==
--- OUTSIDE RECORDS SUMMARY | 2023-10-27 20:00 | XMS_ITS | Continuity of Care Document ---
Author Organization [facility] Address [address] [place] [address] Phone Care Team Providers Care Camouflage Specialist Name Role Phone Homar KING, RVT, RPBROWN, Ismael Unavailable U navailable Procedures Procedure Date Office/Outpt E&M Established 15 Mins- CT & [place] Surgical Stockings CVR Reveal Knee High 20-30 Duplex Scan-extrem Veins; Comp- CT & [place] Duplex Scan-extrem Veins; Uni/ CT & [place] A Inj Scleros Solut; Mx Veins 1- CT & [place] A Ultrason Guidan Needle Bx-rad- CT & MA A Duplex Scan-extrem Veins; Uni/ CT & [place] A Endovenous Laser, 1st Vein- CT & [place] Endovenous Laser, 1st Vein- CT & MA Inj Scleros Solut; Mx Veins 1- CT & MA A Ultrason Guidan Needle Bx-rad- CT & MA A Duplex Scan-extrem Veins; Uni/ CT & MA A Inj Scleros Solut; Mx Veins 1- CT & MA M Ultrason Guidan Needle Bx-rad- CT & MA M Duplex Scan-extrem Veins; Uni/ CT & MA M Endovenous Laser, 1st Vein Endovenous Laser, 1st Vein Inj Scleros Solut; Mx Veins 1 4 Ultrason Guidan Needle Bx-rad 4 Office/Outpt E&M Established 10 Mins - T elemedicine Duplex Scan-extrem Veins; Comp Offic Cons New/estab Mod-hi 60 Advance Directives Directive Yes / No Effective Date File Name No Information Encounters Encounter Description Practice Location Reason(s) For Visit Diagnoses Date Provider Providers Copied on Encounter [facility], [address] [place] [address] Dr Molina 1000SuVanessa kuo [place], [id number], [place] tel:[phone] [facility] No Information 4 Homar KING RVT, JOE Guevara. [address] [place] [address], [place], [place], [id number], [place]. tel:[phone] Referring Provider: Damian Sanchez MD, [address] [place] [address] [address], [place], [address]. tel:[phone] Office/Outpt E&M Established 15 Mins- CT & [place] [facility], [address] [place] [address] Dr Molina 1000SuVanessa kuo [place], [id number], [place] tel:[phone] [facility] Localized edemaCramp and spasmPruritus , unspecified 4 Homar KING RVT, JOE Guevara. [address] [place] [address], [place], [place], [id number], [place]. tel:[phone] Referring Provider: Damian Sanchez MD, [address] [place] [address] [address], [place], [address]. tel:[phone] [place] [facility], [address] [place] [address] Dr Molina 1000SuVanessa kuo MD, [id number], [place] tel:[phone] [facility] Encounter for follow-up examination after completed treatment for conditions other than malignant neChronic venous hypertension (idiopathic) with other complications of bilateral lower extremity 4 Homar KING RVT, JOE Guevara. [address] [facility] [address], [address], [place], [id number], [place]. tel:[phone] Referring Provider: Damian Sanchez MD, [address] [place] [address] Dr Ca, [place], [address]. tel:[phone] [facility], [address] [place] [address] Jesse [address] 1000Vanessa [place], [id number], [place] tel:[phone] [facility] - [place] [facility] [place] Encounter for follow-up examination after completed treatment for conditions other than malignant nePain in left leg Aug- 4 Homar KING RVT, JOE Guevara. [address] [place] [address], [address], [place], [id number], [place]. tel:[phone] Referring Provider: Damian Sanchez MD, [address] [place] [address] Dr Ca, [place], [address]. tel:[phone] [facility], [address] [place] [address] Jesse [address] 1000Vanessa [place], [id number], [place] tel:[phone] CVR - [facility] Varicose veins of left lower extremity with other complications Aug-0 4 Kalen Luo. [address] [place] [address], [address], [place], [id number], [place]. tel:[phone] Referring Provider: Damian Sanchez MD, [address] [place] [address] Dr Ca, [place], [address]. tel:[phone] [facility], [address] [place] [address] Dr Molina 1000Suite 1000Vanessa [place], [id number], [place] tel:[phone] CVR - [facility] Encounter for follow-up examination after completed treatment for conditions other than malignant neVaricose veins of left lower extremity with pain Apr-0 4 Homar KING RVT, JOE Guevara. Count includes the [facility] [facility], [address], [place], [id number], [place]. tel:[phone] Referring Provider: Damian Sanchez MD, [address] [place] [address] Dr Ca, [place], [address]. tel:[phone] [facility], [address] [place] [address] Dr Molina 1000Suite 1000Vanessa [place], [id number], [place] tel:[phone] [facility] - [place] [facility] [place] Chronic venous hypertension (idiopathic) with inflammation of left lower extremity Apr-0 4 Homar KING RVT, JOE Guevara. [address] [place] [address], [facility] [place], [id number], [place]. tel:[phone] Referring Provider: Damian Sanchez MD, [address] [place] [address] [address], [place], [address]. tel:[phone] [facility], [address] [place] [address] Dr Molina 1000Suite Vanessa Villarreal [place], [id number], [place] tel:[phone] [facility] - [place] [facility] [place] Varicose veins of left lower extremity with other complications Apr-0 4 Homar KING RVT, JOE Guevara. [address] [place] [address], [facility] [place], [id number], [place]. tel:[phone] Referring Provider: Damian Sanchez MD, [address] [place] [address] [address], [place], [address]. tel:[phone] [facility], [address] [place] [address] Dr Molina 1000SuVanessa kuo [place], [id number], [place] tel:[phone] [facility] - [place] [facility] [place] Encounter for follow-up examination after completed treatment for conditions other than malignant neChronic venous hypertension (idiopathic) with other complications of right lower extremity Apr-0 4 Homar KING RVT, JOE Guevara. [address] [place] [address], [place] [address], [facility] [place], [id number], [place]. tel:[phone] Referring Provider: Damian Sanchez MD, [address] [place] [address] Dr [address], [place], [address]. tel:[phone] [facility], [address] [place] [address] Dr Molina 1000Suite Vanessa Villarreal [place], [id number], [place] tel:[phone] [facility] - [place] [facility] [place] Varicose veins of right lower extremity with other complications Jul-2 4 Alexy Liang. [address] [facility], [address], [facility] [place], [id number], [place]. tel:[phone] Referring Provider: Damian Sanchez MD, [address] [place] [address] Dr Ca, [place], [address]. tel:[phone] [facility], [address] [place] [address] Dr Molina 1000Suite Vanessa Villarreal [place], [id number], [place] tel:[phone] [facility] - [place] Encounter for follow-up examination after completed treatment for conditions other than malignant neChronic venous hypertension (idiopathic) with other complications of right lower extremity Jul-2 4 Homar KING RVT, JOE Guevara. [address], [facility] [place], [id number], [place]. tel:[phone] Referring Provider: Damian Sanchez MD, [address] [place] [address] Dr Ca, [place], [address]. tel:[phone] [place] [facility], [address] [place] [address] Dr Molina 1000Suite Vanessa Villar[place], [id number], [place] tel:[phone] [facility] - [place] [facility] [place] Varicose veins of right lower extremity with other complications Jul- 4 Homar KING RVT, RPVI Robert. [address] [facility], [address], [facility] [place], [id number], [place]. tel:[phone] Referring Provider: Damian Sanchez MD, [address] [place] [address] Dr Ca, [place], [address]. tel:[phone] [place] [facility], [address] [place] [address] Dr Molina 1000Suite 1000Vanessa [place], [id number], [place] tel:[phone] [facility] - [place] [facility] [place] Varicose veins of right lower extremity with other complications Jul-2 4 Homar KING RVT, JOE Guevara. [address], [address], [facility] [place], [id number], [place]. tel:[phone] Referring Provider: Damian Sanchez MD, [address] [place] [address] Dr Ca, [place], [address]. tel:[phone] Office/Outpt E&M Established 10 Mins - [facility], [address] [place] [address] Dr Molina 1000Suite 1000Vanessa [place], [id number], [place] tel:[phone] CVR - [facility] Chronic venous hypertension (idiopathic) with other complications of bilateral lower extremityCram p and spasmPruritus , unspecified 3 Homar KING, RVT, JOE Guevara. [address] [facility], [address], [facility] [place], [id number], [place]. tel:[phone] Referring Provider: Damian Sanchez MD, [address] [place] [address] Dr Ca, [place], [address]. tel:[phone] [place] [facility], [address] [place] [address] Dr Molina 1000SuVanessa kuo MD, [id number], [place] tel:[phone] CVR - [facility] Chronic venous htn w oth comp of bilateral low extrm Sep- 3 Heath KING FACS T JOE Salgado. [address] [facility], [address], [facility] [place], [address], [place]. tel:[phone] Referring Provider: Damian Sanchez MD, [address] [place] [address] [address], [place], [address]. tel:[phone] Offic Cons New/estab Mod-hi [address] [facility], [address] [place] [address] Dr Molina 1000Suite 1000Vanessa [place], [id number], [place] tel:[phone] CVR [facility] Varicose veins of bi low extrem w oth complications Pain in right lower legPain in left lower legPain in right legPruritus, unspecifiedPa in in left legCramp and spasmLocalize d edema Sep- 3 Heath KING FACS RVT JOE Salgado. [address] [facility], [address], [place] [place], [address], [place]. tel:[phone] Referring Provider: Damian Sanchez MD, [address] [place] [address] [address], [place], [address]. tel:[phone] Family History Family Member Type Diagnosis Age At Onset No Information Payers Payer name Insurance type Covered democrat ID Authoriza tion(s) No Information Social History Type Description Quantity Date Captured Comments Sex Female Smoking Status No Information Chief Complaint And Reason For Visit No Information Reason For Referral Reason For Referral No Information Plan Of Treatment Date Type Action Status Goal Diet education completed Goal Diet education completed Goal Diet education completed Goal Diet education completed Referral Ordered: Weight management: Referral to physician timeframe: 3 Months (related to Body mass index (BMI) 26.0-26.9, adult) ordered Referral Ordered: Damian Sanchez MD timeframe: 3 Months (related to Essential (primary) hypertension) ordered Referral Ordered: Nelia Joe MD, FACS, RVT, RPVI timeframe: 3 Months (related to Essential (primary) hypertension) ordered Referral Ordered: Weight management: Referral to physician timeframe: 3 Months (related to Body mass index (BMI) 26.0-26.9, adult) ordered History Of Present Illness Encounter Date Complaint History Of Prese nt Illness No Information Functional Status Date Functional Assessmen t No Information Instructions Date Instruction Additional Infor haresh Pre and post instruc tions reviewed and provided Related to Localized edema Patient education booklet given Related to Localized edema Lifestyle education Related to B brittney mass index (BMI) 26.0-26.9, adult Giving Encouragement to exercise Related to Body mass index (BMI) 26.0-26.9, adult Diet education Related to Body mass index (BMI) 26.0-26.9, adult Lifestyle education Related to E ssential (primary) hypertension Exercise education Related to Es sential (primary) hypertension Diet education Related to Essen tial (primary) hypertension Patient education booklet given Related to Localized edema Compression stocking usage as conservative measure Related to Localized edema Pre and post instruc tions reviewed and provided Related to Chronic venous hypertension (idiopathic) with other complications of bilateral lower extremity Patient education booklet given Related to Chronic venous hypertension (idiopathic) with other complications of bilateral lower extremity Diet education Related to Body mass index (BMI) 26.0-26.9, adult Lifestyle education Related to E ssential (primary) hypertension Exercise education Related to Es sential (primary) hypertension Diet education Related to Essen tial (primary) hypertension Pre and post instruc tions reviewed and provided Related to Varicose veins of bi low extrem w oth complications Patient education booklet given Related to Varicose veins of bi low extrem w oth complications Lifestyle education Related to B brittney mass index (BMI) 26.0-26.9, adult Giving Encouragement to exercise Related to Body mass index (BMI) 26.0-26.9, adult Assessments Type Assessment Date No Information Patient Care Teams Name Effective Dates (start - stop) Status Members No Information
--- OUTSIDE RECORDS SUMMARY | 2024-11-14 09:12 | XMS_ITS | Patient Health Record ---
Author Organization [facility] Address [address] [place] [address] Care Team Providers Care Monorail Car Operator Name Role Phone Damian Sanchez MD Primary Care Provider Ismael Pringle Unavailable [phone] Allergies Allergen (clinical drug ingredient) Drug/Non Drug Allergy documented on EMR Reaction Allergy Type Onset Date Status rabbits (uncoded) Unknown Allergy Ac tive bandaids (uncoded) Unknown Allergy A ctive seasonal,dust (uncoded) Unknown Allergy Active Reason For Referral No Information Medications Medication SIG (Take, Route, Fr equency, Duration) Notes Start Date End Date Status Vitamin D Active Vitamin B6 Active ZyrTEC Not-Taking Vitamin C Active Immunizations Vaccine Route Administration Date Status Comme nts Influenza Unknown 03/02/2018 Administered Social History Tobacco Use: Social History Observation Description Date Details (start date - stop date) Never Smoker NA - NA Tobacco Use/Smoking Question Answer Notes Patient is a nonsmoker Alcohol Screen Question Answer Notes Did you have a drink contain ing alcohol in the past year? Yes How often did you have a dri nk containing alcohol in the past year? Monthly or less (1 point) How many drinks did you have on a typical day when you were drinking in the past year? 1 or 2 drinks (0 point) How often did you have 6 or more drinks on one occasion in the past year? Never (0 point) Points 1 Interpretation Negative Section Notes: Nonsmoker; no sig alcohol Nonsmoker; no sig alcohol Problems Problem Type SNOMED Code ICD Code Onset Dates Problem Status W/U Status Risk Notes Problem 722983164 Colon cancer screening (Z12.11) Active confirmed Problem Screening for malignant neoplasm of colon (314957919) Encounter for screening for malignant neoplasm of colon (Z12.11) Active confirmed Problem Diverticular disease of colon (710611802) Diverticulosis of large intestine without perforation or abscess without bleeding (K57.30) Active confirmed Problem 521079488372515 Preprocedural examination (Z01.818) Active confirmed Problem 875421558 Family history o f colon cancer (Z80.0) Active confirmed Problem 57441981 Hypertension, unspecified type (I10) Active confirmed Plan Of Treatment Future Test Test Name Order Date COLONOSCOPY 07/27/2018 COLONOSCOPY 06/23/2023 Insurance Providers Payer Name Payer Address Payer Phone Subscriber Number Group Number Insured Name Patient Relationship to Insured Coverage Start Date Coverage End Date [facility] [address] [address] [place] [phone] [id number] CHANDAN HARRY Self - patient is the insured Medical (General) History Medical History History ICD Code Denies [place],DM,CVA,Lung disease,renal dise ase Kidney stones-ESWL Screening colonoscopy in August of 2018 w ith removal of a hyperplastic polyp Surgical History Surgery Date(Month/Year) 1998,2002 C-spine disc surgery C6/C7 2016 LE vein surgery scheduled for latter par august
[2024-11-14 10:12] LABS: MANUAL DIFF FLAG NO
[2024-11-14 10:19] LABS: Hematocrit 40.3 % (37.0-47.0); Hemoglobin 13.4 g/dl (12.0-16.0); Imm Gran Abs Auto 0.01 X10*3/uL (0.00-0.03); Imm Gran Pct Auto 0.2 % (0.0-0.4); Lymphocytes Absolute Auto 1.4 X10*3/uL (1.2-4.9); Mean Corpuscular HGB Conc 33.3 g/dl (31.0-35.0); Mean Corpuscular Hemoglobin 29.7 pg (27.0-33.0); Mean Corpuscular Volume 89.4 fL (80.0-98.0); NRBC Abs Auto 0.000 X10*3/uL (0.0-0.012); NRBC Pct Auto 0.0 /100WBC (0.0-0.2); Platelet Count 271 X10*3/uL (160-400); Red Blood Count 4.51 X10*6/uL (4.20-5.50); White Blood Count 4.2 X10*3/uL (4.8-10.8)
[2024-11-14 10:21] LABS: Appearance Urine Clear; Glucose Urine UA Negative (Negative); PH 6.0 (5.0-9.0); Specific Gravity - Urine 1.020 (1.005-1.025); UMIC TRIGGER UA YES
[2024-11-14 10:46] LABS: Alanine Aminotransferase 18 U/L (0-31); Albumin Level 4.4 g/dL (3.5-5.0); Alkaline Phosphatase 87 U/L (39-117); Anion Gap 14 (12-20); Aspartate Amino Transferase 28 U/L (5-31); Blood Urea Nitrogen 17 mg/dL (9-16); Calcium 9.2 mg/dL (8.4-10.2); Carbon Dioxide 26 mmol/L (22-29); Chloride 106 mmol/L (96-108); Cholesterol 191 mg/dL (<200); Estimated Glomerular Filt Rate > 60; HDL Cholesterol 57 mg/dL (>40); Potassium 3.5 mmol/L (3.3-5.1); Sodium 142 mmol/L (135-145); Total Protein 7.3 g/dL (6.5-8.0); Triglycerides 64 mg/dL (<150)
== END 2024-11-14 08:52 | disposition home or self-care (01) ==
LOC: HO.HMGCLDS 08:51
PROVIDERS: PCP Internal Medicine; Visit Provider Internal Medicine
DX: Z00.00 Encounter for general adult medical examination without abnormal findings (principal)
CPT/HCPCS: 36415; 80053; 80061; 81001; 82306; 84443; 85025

== ENCOUNTER 2024-12-21 08:42 | Outpatient (AMB) | payer BC, SELFPAY ==
--- NOTE | 2024-12-21 08:56 | MHC.OFFVIS ---
Intake Visit Reasons: kidney stone/ER follow up Intake Note: Patient is Present for ER follow up for nephrolithiasis Imaging : CT 09/13/2024 ( [facility] pg 25) Current Urology Medication:Vitamin B6 Blood Thinner: none ALLERGIES:NONE Correctional Cook Required: No Accompanied by: Self / Same As Patient Allergies No Known Allergies Allergy (Verified 12/21/24 08:58) HPI Comments Details: Ann is a very pleasant female. She is a patient of Dr. Sanchez. She is seen for the following urologic conditions - nephrolithiasis Initially had 12 month follow-up Presented to [facility] early September with flank pain CT scan 3 mm right side, 4 mm distal left ureter Medical expulsion therapy successful Plan Litholink with follow-up ultrasound Nephrolithiasis Stopped beets which may have been cause Urolithiasis was diagnosed - February 2020 after ER visit The patient previously had kidney stones whose composition w - May 2020 mixed calcium oxalate 80% monohydrate Laboratory investigations include - no recent labs 24 Hour urine evaluation - none on file Prior treatment(s) include - June 2020 ESWL left side Prior imaging includes - a CT - stone protocol 03/05 inflammation with passage of stone on left, right punctate stones, 6 mm stone mid pole left - 03/06 renal ultrasound no stones seen - 09/05 renal ultrasound question of small stone left side - 03/07 renal ultrasound 5 mm left side - 03/09 renal ultrasound 4 mm left Current therapeutic plan will be - dietary changes, fluid changes, vitamin B6 PFSH Medical History (Updated 09/14/24 @ 14:53 by Lindsey Leon MD) Ovarian cyst Nephrolithiasis Renal calculi Ocular migraine Seasonal allergies HTN (hypertension) Surgical History Hx of lithotripsy Hx of colonoscopy Hx of cervical discectomy Hx of section Social History Patient Tobacco Use Status: Never used Tobacco Cognitive needs: No Hearing needs: No Vision needs: No Review of Systems Const Denies chills and Denies fever(s) Card Reports no additional complaints and Denies syncope Resp Denies cough GI Denies abdominal pain and Denies heartburn Reports as per HPI and Denies change in libido Neuro Denies syncope Psych Denies change in libido Endo Denies change in libido Physical Exam Const General: cooperative, healthy appearing, comfortable and no acute distress Orientation/consciousness: patient oriented x3 HEENT Face and sinus: Yes normal facial exam Mouth: moist mucous membranes Neck Neck: Yes normal visual inspection, Yes full ROM and Yes trachea midline Chest Chest palpation & inspection: normal inspection of the chest Resp Effort & Inspection: normal respiratory effort, able to speak in complete sentences and no respiratory distress GI Inspection: Yes normal to inspection Back/Spine/Pelvis Cervical Spine: normal cervical lordosis Thoracic/Lumbar Spine: thoracic and lumbar spine normal to inspection Skin General skin exam: no rashes or lesions noted Neuro General: patient oriented x3, gait normal, tone normal and moves all extremities Extrem General: Yes normal to inspection and Yes capillary refill normal Assessment & Plan Assessment & Plan (1) Nephrolithiasis: Comment: since 2021, Follow-up with urology annually, L side 5 mm, CT , f/u Dr. Brunson Code(s): N20.0 - Calculus of kidney Category: Medical Plan Uro risk with follow-up ultrasound Orders: Orders URORISK Today N20.0 - Calculus of kidney Patient Instructions: This note is constructed using voice recognition software. While every effort has been made to ensure accuracy dinker errors may have been included. Imaging studies, laboratory and physical exam results were discussed and reviewed in detail. No major barriers to patient understanding were identified. An opportunity to ask questions regarding the treatment plan was provided. All questions were answered. The patient expressed understanding and agreement with the above treatment plan. The patient is aware they should contact our office by phone for worsening of their current condition or the appearance of new urologic symptoms. Compliance is encouraged with any medications and followup testing that is ordered. It is a privilege to participate in the urologic care of your patient. If you have any questions or concerns regarding treatment for the above conditions, or other urologic issues, please do not hesitate to contact me. The office telephone contact is [phone]. Sincerely, Dr Delmer Brunson MD, [facility] - Urology Compassionate Specialist Care for the Genitourinary System Coding Level of Care Code Est Pt Level 4 (59817) Diagnoses Nephrolithiasis N20.0
--- OUTSIDE RECORDS SUMMARY | 2024-12-21 08:57 | XMS_ITS | Patient Health Record ---
Author Organization [facility] Address [address] [place] [address] Care Team Providers Care Human Resources Clerk Name Role Phone Daniel (RETIRED) Damian KING Primary Care Provide Ismael Rice [phone] Allergies Allergen (clinical drug ingredient) Drug/Non Drug [...] Problem Status W/U Status Risk Notes Problem 255709840 Colon cancer screening (Z12.11) Active confirmed Problem Screening for malignant neoplasm of colon (749653338) Encounter for screening for malignant neoplasm of colon (Z12.11) Active confirmed Problem Diverticular disease of colon (607235751) Diverticulosis of large intestine without perforation or abscess without bleeding (K57.30) Active confirmed Problem 211022861970714 Preprocedural examination (Z01.818) Active confirmed Problem 643826170 Family history o f colon cancer (Z80.0) Active confirmed Problem 08994717 Hypertension, unspecified type (I10) Active confirmed Plan Of Treatment Future Test Test Name Order Date COLONOSCOPY 07/27/2018 COLONOSCOPY 06/23/2023 Insurance Providers Payer Name Payer Address Payer Phone Subscriber Number Group Number Insured Name Patient Relationship to Insured Coverage Start Date Coverage End Date [facility] [address] [place] [phone] [id number] CHANDAN HARRY Self - patient is the insured Medical (General) History Medical History History ICD Code Denies [place],DM,CVA,Lung disease,renal dise ase Kidney stones-ESWL Screening colonoscopy in August of 2018 w ith removal of a hyperplastic polyp Surgical History Surgery Date(Month/Year) 1998,2002 C-spine disc surgery C6/C7 2016 LE vein surgery scheduled for latter par august
--- OUTSIDE RECORDS SUMMARY | 2024-12-21 08:57 | XMS_ITS | Clinical Summary ---
Author Organization [facility] Address [address] [place] [address] Phone Care Team Providers Care Supervisor Cytology Name Role Phone Pcp, Unknown Primary Care Provider Unavailabl e Allergies Active Allergy Reactions Criticality Noted Date Comments Adhesive 03/14/2023 Medications pyridoxine, vitamin B6, (B-6) 100 MG tablet Take 1 tablet by mouth every morning. 02/23/2023 Active cholecalciferol (VITAMIN D3) 5,000 unit capsule Take 5,000 Units by mouth daily. Active fexofenadine (JOLLY) 60 MG tablet Take 60 mg by mouth daily. Active mometasone (NASONEX) 50 mcg/actuation nasal spray 2 sprays by Nasal route daily. Active Encounters Date Type Department Care Team Description 11/28/2024 9:00 AM EDT Office Visit [facility] at [address] [address] Myrna Seymour, Becky Landers, DERICK Friction burn (Primary Dx); Insect bite of upper arm, unspecified laterality, initial encounter from Last 3 Months Social History Tobacco Use Types Packs/Day Years Used Date Smoking Tobacco: Never Assessed Education Answer Date Recorded Are you interested in more education? Not on saleem e 03/14/2023 Are you concerned about learning? Not on file 03/14/2023 No 03/14/2023 No 03/14/2023 Digital Access Answer Date Recorded No 03/14/2023 No 03/14/2023 Reliable internet access at home? Not on file 03/14/2023 Device with a working camera? Not on file Intimate Partner Violence Answer Date R ecorded Are you denied basic needs s uch as food, clothing, or medical care? No 03/17/2023 In the past 12 months have y ou been in a relationship with a person who hurts, threatens, or tries to control you? No 03/17/2023 Are you denied basic needs s uch as food, clothing, or medical care? No 03/17/2023 In the past 12 months have y ou been in a relationship with a person who hurts, threatens, or tries to control you? No 03/17/2023 Comments Unknown Sex and Gender Information Value Date Recorded Sex Assigned at Female 03/17/2023 3:05 AM EDT Legal Sex Female 9:40 PM EDT Gender Identity Female 03/17/2023 3:05 AM EDT Sexual Orientation Not on file Last Filed Vital Signs Vital Sign Reading Time Taken Comments Blood Pressure 136/80 11/28/2024 8:32 AM EDT Pulse 78 11/28/2024 8:32 AM EDT Temperature 36.5 C (97.7 F) 11/28/2024 8:32 AM EDT Respiratory Rate 17 11/28/2024 8:32 AM EDT Oxygen Saturation 99% 11/28/2024 8:32 AM EDT Inhaled Oxygen Concentration - - Weight 81.6 kg (180 lb) 03/17/2023 3:00 AM EDT Height 177.8 cm (5' 10 ) 03/17/2023 3:00 AM EDT Body Mass Index 25.83 03/17/2023 3:00 AM EDT Plan of Treatment Health Maintenance Due Date Last Done Comments LIPID PANEL 1965 DEPRESSION SCREENING 1977 SMOKING Hx and SMOKELESS TOBACCO SCREENING 1978 HEPATITIS C SCREENING 11/21/1983 HIV ONE-TIME SCREENING (18-6 5 YEARS) 11/21/1983 PAP SMEAR 1986 MAMMOGRAM 2005 COLOGUARD 2010 COLONOSCOPY 2010 COLORECTAL CANCER SCREENING 2010 FIT TEST 2010 FOBT 2010 SIGMOIDOSCOPY 2010 VIRTUAL COLONOSCOPY 2010 PNEUMOCOCCAL VACCINES (50+ years) (1 of 1 - PCV) 11/21/2015 COVID-19 VACCINE (2023-2 5 season) 2024 04/05/2021, 07/30/2020, 07/02/2020 SCREENING FOR DIABETES 03/17/2026 03/17/2023 Adult Td,Tdap Booster 08/31/2032 08/31/2022 ZOSTER VACCINES Completed 12/25/2021, 02/14/2021 HEPATITIS A VACCINES Aged Out No long er eligible based on patient's age to complete this topic HIB VACCINES Aged Out No longer eligi ble based on patient's age to complete this topic MENINGOCOCCAL VACCINES (ACWY) Aged Out No longer eligible based on patient's age to complete this topic MENINGOCOCCAL VACCINES (B) Aged Out N o longer eligible based on patient's age to complete this topic Medical Devices Not on file Insurance Member Subscriber Plan / Payer (Ef fective 2021-Present) Name:Hilary Colón Relation to Subscriber:Self Name:Hilary Colón Payer ID:Not on file Type:PPO Address: [address] [facility] [place] [employer] [facility] PPO [place] [address] [place], [place] [address] [facility] [place] [address] [address] [place] [address] [employer] [facility] [place] [address] [place] [address] [employer] [facility] [facility] [place] [facility] [place] E[place] Care Teams Supervisor Cytology Relationship Specialty Start Date End Date Pcp, Unknown PCP - General 11/28/24 Additional Source Comments The information contained in this document represents components of the legal health record. It is not the complete legal health record.[facility]
== END 2024-12-21 09:31 | disposition home or self-care (01) ==
LOC: HO.HUSH 08:43
PROVIDERS: PCP Internal Medicine; Visit Provider Urology
DX: N20.0 Calculus of kidney (principal)
CPT/HCPCS: 99214

== ENCOUNTER → 2024-12-21 08:42 | Outpatient (BNVA) | payer BC, SELFPAY | PROVIDERS: PCP Internal Medicine; Visit Provider Urology | DX: N20.0 Calculus of kidney (principal) | CPT/HCPCS: 81003 ==

== ENCOUNTER 2025-01-25 11:30 | Outpatient (AMB) | payer BC, SELFPAY ==
--- OUTSIDE RECORDS SUMMARY | 2023-09-02 10:00 | XMS_ITS ---
Author Organization [facility] Address [address] [place] [address] Care Team Providers Care Cover Maker Name Role Phone Daniel (RETIRED) Damian KING Primary Care Provide Ismael Rice Unavailable [phone] REASON FOR VISIT screening hx of polyps Problems Problem Type SNOMED Code ICD Code Onset Dates Problem Status W/U Status Risk Notes Problem Diverticular disease of colon (697743814) Diverticulosis of large intestine without perforation or abscess without bleeding (K57.30) Active confirmed Encounters Encounter Location Date Provider Diagnosis [facility] Outpatient [address] [place] [address] [phone] 09/02/2023 Ismael Chun Encounter for scre ening colonoscopy Z12.11 ; Family history of colon cancer Z80.0 ; Diverticulosis of large intestine without perforation or abscess without bleeding K57.30 and Other hemorrhoids K64.8 Assessments Encounter Date Diagnosis (ICD Code) Assessment Notes Treatment Notes Treatment Clinical Notes Section Notes 09/02/2023 Encounter for screening colonoscopy (ICD-10 - Z12.11) 09/02/2023 Family history of colon cancer (ICD-10 - Z80.0) 09/02/2023 Diverticulosis of large intestine without perforation or abscess without bleeding (ICD-10 - K57.30) 09/02/2023 Other hemorrhoids (ICD-10 - K64.8) Plan Of Treatment No Information Progress Notes * CHANDAN HARRYDOB:1965 (59 yo F)Acc No.[id number]:09/02/2023 COLON WITH MAC Patient: Jhonathan BUSTILLO CHANDAN VALENTINE Provider: Jaymie Chun MD :1965 A ge:57 Y S ex:Female Date:09/02/2023 Address:[address] [place] [address], [place] treviño [id number] Pcp:Damian Sanchez (RETIRED )MD Subjective: * Chief Complaints: * 1 . Screening hx of polyps. * Medical History: Objective: * Vitals: Assessment: * Assessment: 1. E ncounter for screening colonoscopy - Z12.11 (Primary) 2 . F amily history of colon cancer - Z80.0 3 . D iverticulosis of large intestine without perforation or abscess without bleeding - K57.30 4 . O ther hemorrhoids - K64.8 ? Plan: * Treatment: * Procedure Codes: 4 5378 DIAGNOSTIC COLONOSCOPY * * The named appointment provid er may or may not be the originator of this progress note, and it is not deemed complete until electronically signed by the appointment provider. Sign off status: Pending * Provider: Jaymie Chun MD Date: 0 09/02/2023 Generated for Tila marc/Jaja/eTcalsmitting on: 0 01/25/2025 03:52 PM EDT
[2025-01-25 11:41] VITALS: BP 138/78; PULSE 76; RESP 18; TEMP 36.6; O2SAT 98; BMI 22.7
--- NOTE | 2025-01-25 11:41 | MHC.PC.OV ---
Vital Signs 01/25/25 11:41 Height 5 ft 10 in Weight 158 lb BMI 22.7 BP 138/78 Blood Pressure Location Rt brachial Position Sitting Respiration 18 Pulse 76 Pulse Source Pulse Oximeter Temp 97.9 F Temp Source Oral Pulse Oximetry (%) 98 Oxygen Delivery Method Room Air Intake Visit Reasons: Annual PE Intake Note: Pt is here today for PE. Allergies No Known Allergies Allergy (Verified 01/25/25 11:46) Tobacco use date assessed: 01/25/25 Dental Screening Dental Screen Date: 01/25/25 Did you have a dental visit in the last 12 months?: Yes Did you have a dental problem in the last 6 months where you did not have access to dental care?: No Was dental information given to patient?: Patient has dentist HPI Annual PE HPI Details Patient presents for physical. She was referred to a different senior java developer by Dr. Resendez for left ovarian cyst PFSH Medical History (Updated 01/25/25 @ 12:41 by Lindsey Leon MD) Ovarian cyst Nephrolithiasis Renal calculi Ocular migraine Seasonal allergies HTN (hypertension) Surgical History (Updated 01/25/25 @ 12:28 by Lindsey Leon MD) Hx of lithotripsy Hx of colonoscopy Hx of cervical discectomy Hx of section Family History (Updated 01/25/25 @ 11:49 by Nupur Collier [facility]) Father No problems noted. Mother Hypertension Social History Housing: House Patient Tobacco Use Status: Never used Tobacco e-Cigarette/Vaping Use: Never Used service: No Current occupational status: employed Cognitive needs: No Hearing needs: No Vision needs: Yes Questionnaire PHQ-9 Over the last 2 weeks, how often have you been bothered by any of the following problems? 1. Little interest or pleasure in doing things: not at all 2. Feeling down, depressed, or hopeless: not at all 3. Trouble falling or staying asleep, or sleeping too much: not at all 4. Feeling tired or having little energy: not at all 5. Poor appetite or overeating: not at all 6. Feeling bad about yourself - or that you are a failure or have let yourself or your family down: not at all 7. Trouble concentrating on things, such as reading the newspaper or watching television: not at all 8. Moving or speaking so slowly that other people could have noticed. Or the opposite - being so fidgety or restless that you have been moving around a lot more than usual: not at all 9. Thoughts that you would be better off or of hurting yourself in some way: not at all Total score: 0 Depression Screening Interpretation: Negative Depression Screening Done: Yes Source: Developed by Drs. Ismael Bailey, Victorina Jones, Pierre Mcclellan and colleagues, with an educational elefgo from [employer]. Thrive Questionnaire Date Thrive assessed: 09/14/24 I am a: Parent/Caregiver What is your living situation today?: I have a steady place to live Within the past 12 months, did the food you bought not last and you didn't have the money to get more?: Never true Within the past 12 months, did you worry whether your food would run out before you got money to buy more?: Never true Do you have trouble paying for medicines?: No Do you have trouble getting transportation to medical appointments?: No Do you have trouble paying your heating and electricity bill?: No Do you have trouble taking care of your child, family member or friend?: No Do you have trouble with day-to-day activities such as bathing, preparing meals, shopping, managing finances, etc.?: No Are you currently unemployed and looking for a job?: No Are you interested in more education?: No Please select the resources that you would like help with: None Currently or been in a relationship where the following occur: No concerns reported THRIVE Score: 0 JOSE-7 AMB Questionnaire JOSE-7 Date JOSE - 7 assessed: 09/14/24 Feeling nervous, anxious, or on edge: 0 = Not at all Not being able to stop or control worryin = Not at all Worrying too much about different things: 0 = Not at all Trouble relaxin = Not at all Being so restless that it is hard to sit still: 0 = Not at all Becoming easily annoyed or irritable: 0 = Not at all Feeling afraid as if something awful might happen: 0 = Not at all Total JOSE-7 score (0-4 normal; 5-9 mild; 10-14 moderate; 15-21 severe): 0 Source: Developed by Drs. Ismael Bailey, Victorina Jones, Pierre Mcclellan and colleagues, with an educational elfego from [employer]. Review of Systems Const All systems reviewed & are unremarkable except as noted in HPI and below Eyes Reports no additional complaints ENT Reports no additional complaints Card Reports no additional complaints Resp Reports no additional complaints GI Reports no additional complaints Reports no additional complaints Physical exam (Primary Care) Vital Signs: Last Vital Signs Temp 97.9 F 01/25/25 11:41 Pulse 76 01/25/25 11:41 Resp 18 01/25/25 11:41 Pulse Ox 98 01/25/25 11:41 Oxygen Delivery Method Room Air 01/25/25 11:41 BMI result Body Mass Index 22.7 Tobacco/Smoking Status: Tobacco use Status Tobacco use date assessed 01/25/25 01/25/25 11:50 Patient Tobacco Use Status Never used Tobacco 01/25/25 11:42 e-Cigarette/Vaping Use Never Used 01/25/25 11:50 PHQ-9: PHQ-9 Score PHQ-9: Total score 0 01/25/25 11:50 Depression Screening Interpretation: Negative Thrive Assessment: Date of Thrive Assessment Date Thrive assessed 09/14/24 01/25/25 11:42 Currently or been in a relationship where the following occur: No concerns reported Const General: no acute distress HENMT Ears: TM's normal bilaterally Face and sinus: Yes normal facial exam Mouth: Normal oral and palatal mucosa present Throat: Yes posterior oropharynx normal Eyes General: appearance normal, both eyes and all related structures Neck Neck: Yes no lymphadenopathy and Yes supple Resp Effort & Inspection: normal respiratory effort Auscultation: clear to auscultation bilaterally Cardio Rhythm: regular rhythm Heart sounds: S1 normal heart sound present and S2 normal heart sound present GI Inspection: Yes normal to inspection Palpation (GI): Soft to palpation Percussion: Yes normal to percussion Auscultation: normal bowel sounds Coding Level of Care Code Est Pt Prev Care 40-64y(16917) Diagnoses HTN (hypertension) I10 Nephrolithiasis N20.0 Ovarian cyst N83.209 Annual physical exam Z00.00 Assessment & Plan Assessment & Plan (1) HTN (hypertension): Comment: History of white coat Code(s): I10 - Essential (primary) hypertension Category: Medical Plan: Patient was advised to monitor blood pressure at home follow-up in 2 months (2) Nephrolithiasis: Comment: since 2021, Follow-up with urology annually, L side 5 mm, CT , f/u Dr. Brunson Code(s): N20.0 - Calculus of kidney Category: Medical Plan: Follow-up with urology (3) Ovarian cyst: Comment: Left 3 cm adnexa , incidental finding on CT scan 08/2024, referred to 01/2025 Code(s): N83.209 - Unspecified ovarian cyst, unspecified side Category: Medical Plan: Patient will see Dr. Che for evaluation (4) Annual physical exam: Code(s): Z00.00 - Encounter for general adult medical examination without abnormal findings Category: Medical Plan: Well-balanced diet regular physical activity discussed with the patient follow-up in 2 months. Patient is up-to-date with mammogram colonoscopy and Pap smear
--- OUTSIDE RECORDS SUMMARY | 2025-01-25 15:52 | XMS_ITS | Clinical Summary ---
Author Organization [facility] Address [address] [place] [address] Phone Care Team Providers Care Natural Developer Name Role Phone Pcp, Unknown Primary Care [...] Description 11/28/2024 9:00 AM EDT Office Visit [facility] at [address] [address] Myrna Seymour, Becky Landers, DERICK Friction burn [...] HEPATITIS C SCREENING 11/21/1983 HIV ONE-TIME SCREENING (18-65 YEARS) 11/21/1983 PAP SMEAR 1986 MAMMOGRAM 2005 COLOGUARD 2010 COLONOSCOPY 2010 COLORECTAL CANCER SCREENING 2010 FIT TEST 2010 FOBT 2010 SIGMOIDOSCOPY 2010 VIRTUAL COLONOSCOPY 2010 PNEUMOCOCCAL VACCINES (50+ years) (1 of 1 - PCV) 11/21/2015 INFLUENZA VACCINE (#1) 2024 4, 02/04/2023, 02/05/2022, Additional history exists COVID-19 VACCINE ( season) 2025 04/05/2021, 07/30/2020, 07/02/2020 SCREENING FOR DIABETES 03/17/2026 [...] topic Medical Devices Not on file Insurance [facility] PPO PHCS Member Subscriber Plan / Payer (Ef fective 2021-Present) Name:Hilary Colón Relation to Subscriber:Self Name:Hilary Colón Payer ID:Not on file Type:PPO Address: [address] PPO EPO [facility] PHCS [facility] [place] [address] [place] [address] PHCS [facility] PPO EPO [address] [place], [place] [address]S Member Subscriber Plan / Payer (Ef fective 2021-Present) Name:Hilary Colón Relation to Subscriber:Self Name:Hilary Colón Payer ID:Not on file Type:PPO Address: [address] [place] [address] [address] PHCS Member Subscriber Plan / Payer (Ef fective 2021-Present) Name:Hilary Colón Relation to Subscriber:Self Name:Hilary Colón Payer ID:Not on file Type:PPO Address: [address] PPO EPO [facility] PPO PHCS [facility] PPO EPO Care Teams Natural Developer Relationship Specialty Start Date End Date Pcp, Unknown PCP - General 11/28/24 Additional Source Comments The information contained in this document represents components of the legal health record. It is not the complete legal health record.[facility]
--- OUTSIDE RECORDS SUMMARY | 2025-01-25 15:52 | XMS_ITS | Patient Health Record ---
Author Organization [facility] Address [address] [place] [address] Care Team Providers Care Manager Primary Name Role Phone Daniel (RETIRED) Damian KING Primary Care Provide Ismael Rice [phone] Allergies Allergen (clinical drug ingredient) Drug/Non Drug [...] Problem Status W/U Status Risk Notes Problem 328774803 Colon cancer screening (Z12.11) Active confirmed Problem Screening for malignant neoplasm of colon (789561510) Encounter for screening for malignant neoplasm of colon (Z12.11) Active confirmed Problem Diverticular disease of colon (024792348) Diverticulosis of large intestine without perforation or abscess without bleeding (K57.30) Active confirmed Problem 456588198022987 Preprocedural examination (Z01.818) Active confirmed Problem 286740677 Family history o f colon cancer (Z80.0) Active confirmed Problem 56922816 Hypertension, unspecified type (I10) Active confirmed Plan Of Treatment Future Test Test Name Order Date COLONOSCOPY 07/27/2018 COLONOSCOPY 06/23/2023 Insurance Providers Payer Name Payer Address Payer Phone Subscriber Number Group Number Insured Name Patient Relationship to Insured Coverage Start Date Coverage End Date [facility] [address] [place] [phone] [id number] CHANDAN HARRY Self - patient is the insured Medical (General) History Medical History History ICD Code Denies OK,DM,CVA,Lung disease,renal dise ase Kidney stones-ESWL Screening colonoscopy in August of 2018 w ith removal of a hyperplastic polyp Surgical History Surgery Date(Month/Year) 1998,2002 C-spine disc surgery C6/C7 2016 LE vein surgery scheduled for latter par august
== END 2025-01-25 12:43 | disposition home or self-care (01) ==
LOC: HO.HMCC 11:30
PROVIDERS: PCP Internal Medicine; Visit Provider Internal Medicine
DX: I10 Essential (primary) hypertension (principal); N20.0 Calculus of kidney; N83.209 Unspecified ovarian cyst, unspecified side; Z00.00 Encounter for general adult medical examination without abnormal findings

== ENCOUNTER 2025-04-06 16:27 | Outpatient (REF) | payer BC, SELFPAY ==
--- NOTE | ~2025-04-06 | US_ITS ---
EXAMINATION: US KIDNEY BILATERAL HISTORY: N20.0 - Calculus of kidney TECHNIQUE: Real-time grayscale ultrasound imaging of the kidneys was performed and images were reviewed. COMPARISON: Comparison is made with the prior examination dated 04/10/2024. FINDINGS: Right kidney: The right kidney measures 11.9 x 4.5 x 5.3 cm. Renal parenchymal echotexture and thickness are normal. There is a 1.3 x 1.1 x 1.0 cm parapelvic cyst. There is no hydronephrosis or renal calculi. Left Kidney: The left kidney measures 11.8 x 5.8 x 5.0 cm. Renal parenchymal echotexture and thickness are normal. There are multiple parapelvic cysts measuring up to 2.5 x 1.8 x 1.8 cm. There is no hydronephrosis or renal calculi. US/US renal BI IMPRESSION: Bilateral renal parapelvic cysts as described. No evidence of nephrolithiasis. Electronically signed by: Ismael Vasquez MD 04/09/2025 07:06 AM [facility]
--- OUTSIDE RECORDS SUMMARY | 2025-04-06 16:31 | XMS_ITS | Patient Health Record ---
Author Organization [facility] Address [address] [place] [address] Care Team Providers Care Carton Marker Machine Name Role Phone Daniel (RETIRED) Damian KING Primary Care Provide Ismael Rice [phone] Allergies Allergen (clinical drug ingredient) Drug/Non Drug Allergy documented on EMR Reaction Allergy Type Onset Date Status bandaids (uncoded) Unknown Allergy A ctive rabbits (uncoded) Unknown Allergy Ac tive seasonal,dust (uncoded) Unknown Allergy Active Reason For Referral No Information Medications Medication SIG (Take, Route, Fr equency, Duration) Notes Start Date End Date Status Vitamin D Active Vitamin B6 Active ZyrTEC Not-Taking /PRN Vitamin C Active Immunizations Vaccine Route Administration Date Status Comme nts Influenza Unknown 03/02/2018 Administered Social History Tobacco Use: Social History Observation Description Date Details (start date - stop date) Never Smoker NA - NA Social History Drugs/Alcohol: Social Info Question Answer Notes Alcohol Screen Did you have a drink containing alcohol in the past year? Yes How often did you have a drink containing alcohol in the past year? Monthly or less (1 point) How many drinks did you have on a typical day when you were drinking in the past year? 1 or 2 drinks (0 point) How often did you have 6 or more drinks on one occasion in the past year? 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 [employer] Section Notes: Nonsmoker; no sig alcohol Nonsmoker; no sig alcohol Problems Problem Type SNOMED Code ICD Code Onset Dates Problem Status W/U Status Risk Notes Problem Colon cancer screening (931656550) Colon cancer screening (Z12.11) Active confirmed Problem Screening for malignant neoplasm of colon (551724227) Encounter for screening for malignant neoplasm of colon (Z12.11) Active confirmed Problem Diverticular disease of colon (000277741) Diverticulosis of large intestine without perforation or abscess without bleeding (K57.30) Active confirmed Problem Preprocedural examination (398776989644219) Preprocedural examination (Z01.818) Active confirmed Problem Family History of Cancer of Colon (Situation) (416831495) Family history of colon cancer (Z80.0) Active confirmed Problem Essential hypertension (17501617) Hypertension, unspecified type (I10) Active confirmed Plan Of Treatment Future Test Test Name Order Date COLONOSCOPY 07/27/2018 COLONOSCOPY 06/23/2023 Insurance Providers Payer Name Payer Address Payer Phone Subscriber Number Group Number Insured Name Patient Relationship to Insured Coverage Start Date Coverage End Date [facility] [address] [place] [phone] [id number] CHANDAN HARRY Self - patient is the insured Medical (General) History Medical History History ICD Code Denies DC,DM,CVA,Lung disease,renal dise ase Kidney stones-ESWL Screening colonoscopy in August of 2018 w ith removal of a hyperplastic polyp Surgical History Surgery Date(Month/Year) 1998,2002 C-spine disc surgery C6/C7 2016 LE vein surgery scheduled for latter par august
--- OUTSIDE RECORDS SUMMARY | 2025-04-06 16:31 | XMS_ITS | Clinical Summary ---
Author Organization [facility] Address [address] [place] [address] Phone Care Team Providers Care State Game Warden Name Role Phone Pcp, Unknown Primary Care [...] 2 sprays by Nasal route daily. Active Social History Tobacco Use Types Packs/Day Years [...] - PCV) 11/21/2015 INFLUENZA VACCINE (#1) 2024 , 02/04/2023, 02/05/2022, Additional history exists COVID-19 VACCINE ( - 2024- season) 2025 04/05/2021, 07/30/2020, 07/02/2020 SCREENING FOR DIABETES 03/17/2026 03/17/2023 Adult Td,Tdap Booster 08/31/2032 08/31/2022 RSV VACCINE (1 - 1-dose 75+ series) 2040 ZOSTER VACCINES Completed 12/25/2021, 02/14/2021 HEPATITIS A [...] topic Medical Devices Not on file Insurance [facility] Member Subscriber Plan / Payer (Ef fective 2021-Present) Name:Hilary Colón Relation to Subscriber:Self Name:Hilary Colón Payer ID:Not on file Type:PPO Address: [place] [id number] [facility] PPO EPO PHCS [facility] PPO EPO S PPO EPO [facility] PPO PHCS Member Subscriber Plan / Payer (Ef fective 2021-) Name:Hilary Colón Relation to Subscriber:Self Name:Hilary Colón Payer ID:Not on file Type:PPO Address: [address] PPO EPO [facility] PPO PHCS [facility] PPO EPO Care Teams State Game Warden Relationship Specialty Start Date End Date Pcp, Unknown PCP - General 11/28/24 Additional Source Comments The information contained in this document represents components of the legal health record. It is not the complete legal health record.[facility]
== END 2025-04-06 16:28 | disposition home or self-care (01) ==
LOC: HO.US 16:27
PROVIDERS: PCP Internal Medicine; Visit Provider Urology
DX: N20.0 Calculus of kidney (principal)
CPT/HCPCS: 76775

== ENCOUNTER → 2025-04-06 16:29 | Outpatient (BNV) | payer BC, SELFPAY | PROVIDERS: PCP Internal Medicine; Visit Provider Radiology Diagnostic Radiology | DX: N28.1 Cyst of kidney, acquired (principal) | CPT/HCPCS: 76775 ==

== ENCOUNTER 2025-04-18 12:27 | Outpatient (AMB) | payer BC, SELFPAY ==
--- NOTE | 2025-04-18 12:27 | MHC.OFFVIS ---
Intake Visit Reasons: 1Y US/Litholink(set) Intake Note: Reason for Visit: Ultrasound/Litholink Results (Telehealth) Urology Meds: Vitamin B6 Blood Thinners: None Labs: Litholink Results 02/13/2025 Imaging: Renal US 04/06/25 Last PVR: 0ml Cargo Service Supervisor Required: No Accompanied by: Self / Same As Patient Allergies No Known Allergies Allergy (Verified 04/18/25 12:27) HPI Comments Details: Ann is a very pleasant female. She is a patient of Dr. Sanchez. She is seen for the following urologic conditions - nephrolithiasis Initially had 12 month follow-up Presented to [facility] early September with flank pain Litholink - good volume, high calcium 440, good citrate 990, oxalate 25, high sodium 190 - plasma calcium 8.2 Repeat Litholink in 4 months with full labs just to review parathyroid and hypercalciuria Nephrolithiasis Stopped beets which may have been cause Urolithiasis was diagnosed - February 2020 after ER visit The patient previously had kidney stones whose composition w - May 2020 mixed calcium oxalate 80% monohydrate Laboratory investigations include - no recent labs 24 Hour urine evaluation - none on file Prior treatment(s) include - June 2020 ESWL left side Prior imaging includes - a CT - stone protocol 03/05 inflammation with passage of stone on left, right punctate stones, 6 mm stone mid pole left - 03/06 renal ultrasound no stones seen - 09/05 renal ultrasound question of small stone left side - 03/07 renal ultrasound 5 mm left side - 03/09 renal ultrasound 4 mm left - 03/10 Bilateral renal parapelvic cysts as described. No evidence of nephrolithiasis. Current therapeutic plan will be - dietary changes, fluid changes, vitamin B6 PFSH Medical History Ovarian cyst Nephrolithiasis Renal calculi Ocular migraine Seasonal allergies HTN (hypertension) Surgical History Hx of lithotripsy Hx of colonoscopy Hx of cervical discectomy Hx of section Family History Father No problems noted. Mother Hypertension Social History Housing: House Patient Tobacco Use Status: Never used Tobacco e-Cigarette/Vaping Use: Never Used service: No Current occupational status: employed Cognitive needs: No Hearing needs: No Vision needs: Yes Review of Systems Const Denies chills and Denies fever(s) Card Reports no additional complaints and Denies syncope Resp Denies cough GI Denies abdominal pain and Denies heartburn Reports as per HPI and Denies change in libido Neuro Denies syncope Psych Denies change in libido Endo Denies change in libido Physical Exam Const General: cooperative, healthy appearing, comfortable and no acute distress Orientation/consciousness: patient oriented x3 HEENT Face and sinus: Yes normal facial exam Mouth: moist mucous membranes Neck Neck: Yes normal visual inspection, Yes full ROM and Yes trachea midline Chest Chest palpation & inspection: normal inspection of the chest Resp Effort & Inspection: normal respiratory effort, able to speak in complete sentences and no respiratory distress GI Inspection: Yes normal to inspection Back/Spine/Pelvis Cervical Spine: normal cervical lordosis Thoracic/Lumbar Spine: thoracic and lumbar spine normal to inspection Skin General skin exam: no rashes or lesions noted Neuro General: patient oriented x3, gait normal, tone normal and moves all extremities Extrem General: Yes normal to inspection and Yes capillary refill normal Telehealth Telehealth Telehealth Platform: Telephone Location of provider rendering services: practice address Location of patient: address on file Patient Identification confirmed using: Name, : Yes Patient verbally consented to treatment: Yes Patient verbally consented to billing insurance company: Yes Patient informed of any privacy concerns related to visit: Yes Assessment & Plan Assessment & Plan (1) Nephrolithiasis: Comment: since 2021, Follow-up with urology annually, L side 5 mm, CT , f/u Dr. 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 While every effort has been made to ensure accuracy human resources psychologist errors may have been included. Imaging studies, laboratory and physical exam results were discussed and reviewed in detail. No major barriers to patient understanding were identified. An opportunity to ask questions regarding the treatment plan was provided. All questions were answered. The patient expressed understanding and agreement with the above treatment plan. The patient is aware they should contact our office by phone for worsening of their current condition or the appearance of new urologic symptoms. Compliance is encouraged with any medications and followup testing that is ordered. It is a privilege to participate in the urologic care of your patient. If you have any questions or concerns regarding treatment for the above conditions, or other urologic issues, please do not hesitate to contact me. The office telephone contact is [phone]. Sincerely, Dr Delmer Brunson MD, RAKESH [facility] - Urology Compassionate Specialist Care for the Genitourinary System Coding Level of Care Code Est Pt Level 3 (15936) Complex visit Add On G2211 Diagnoses Nephrolithiasis N20.0 Hypercalciuria R82.994
--- OUTSIDE RECORDS SUMMARY | 2025-04-18 14:45 | XMS_ITS | Clinical Summary ---
Author Organization [facility] Address [address] [place] [address] Phone Care Team Providers Care Radio Personality Name Role Phone Pcp, Unknown Primary Care [...] topic Medical Devices Not on file [facility] Member Subscriber Plan / Payer (Ef fective 2021-Present) Name:Hilary Colón Relation to Subscriber:Self Name:Hilary Colón Payer ID:Not on file Type:PPO Address: [place] [id number] [facility] PPO EPO PH[employer] [facility] PPO EPO S PPO EPO [facility] PPO PHCS Member Subscriber Plan / Payer (Ef fective 2021-) Name:Hilary Colón Relation to Subscriber:Self Name:Hilary Colón Payer ID:Not on file Type:PPO Address: [address] PPO EPO [facility] PPO PHCS [facility] PPO EPO Care Teams Radio Personality Relationship Specialty Start Date End Date Pcp, Unknown PCP - General 11/28/24 Additional Source Comments The information contained in this document represents components of the legal health record. It is not the complete legal health record.[facility]
--- OUTSIDE RECORDS SUMMARY | 2025-04-18 14:45 | XMS_ITS | Patient Health Record ---
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 [employer] Section Notes: Nonsmoker; no sig alcohol Nonsmoker; no sig alcohol Problems Problem Type SNOMED Code ICD Code Onset Dates Problem Status W/U Status Risk Notes Problem Colon cancer screening (172229420) Colon cancer screening (Z12.11) Active confirmed Problem Screening for malignant neoplasm of colon (944647210) Encounter for screening for malignant neoplasm of colon (Z12.11) Active confirmed Problem Diverticular disease of colon (121924568) Diverticulosis of large intestine without perforation or abscess without bleeding (K57.30) Active confirmed Problem Preprocedural examination (530886762766704) Preprocedural examination (Z01.818) Active confirmed Problem Family History of Cancer of Colon (Situation) (151082056) Family history of colon cancer (Z80.0) Active confirmed Problem Essential hypertension (74022320) Hypertension, unspecified type (I10) Active confirmed Plan Of Treatment Future Test Test Name Order Date COLONOSCOPY 07/27/2018 COLONOSCOPY 06/23/2023 Insurance Providers Payer Name Payer Address Payer Phone Subscriber Number Group Number Insured Name Patient Relationship to Insured Coverage Start Date Coverage End Date [facility] [address] [place] [phone] [id number] CHANDAN HARRY Self - patient is the insured Medical (General) History Medical History History ICD Code Denies [place],DM,CVA,Lung disease,renal dise ase Kidney stones-ESWL Screening colonoscopy in August of 2018 w ith removal of a hyperplastic polyp Surgical History Surgery Date(Month/Year) 1998,2002 C-spine disc surgery C6/C7 2016 LE vein surgery scheduled for latter par august
== END 2025-04-18 16:51 | disposition home or self-care (01) ==
LOC: HO.HUSH 12:27
PROVIDERS: PCP Internal Medicine; Visit Provider Urology
DX: N20.0 Calculus of kidney (principal); R82.994 Hypercalciuria
CPT/HCPCS: 99213

== ENCOUNTER 2025-05-15 11:28 | Outpatient (AMB) | payer BC, SELFPAY ==
[2025-05-15 11:31] VITALS: BP 126/80; PULSE 74; RESP 17; O2SAT 97; BMI 23.2
--- NOTE | 2025-05-15 11:31 | A.OFFPC_ITS ---
Vital Signs 05/15/25 11:31 Height 5 ft 10 in Weight 162 lb BMI 23.2 BP 126/80 Blood Pressure Location Lt brachial Position Sitting Respiration 17 Pulse 74 Pulse Source Pulse Oximeter Pulse Oximetry (%) 97 Oxygen Delivery Method Room Air Intake Visit Reasons: 2 months f/up Intake Note: Pt is here today for 2 months follow up visit. Allergies No Known Allergies Allergy (Verified 05/15/25 11:33) Medication List - Last Reconciled 05/15/25 by Lindsey Leon MD pyridoxine (vitamin B6) 50 mg PO DAILY 90 days Tobacco use date assessed: 05/15/25 Dental Screening Dental Screen Date: 01/25/25 HPI 2 months f/up HPI Details Pt presents for f/u. Pt has been exercising up to 4 x a week and trying to follow low-sodium diet. [facility] Medical History Ovarian cyst Nephrolithiasis Renal calculi Ocular migraine Seasonal allergies HTN (hypertension) Surgical History Hx of lithotripsy Hx of colonoscopy Hx of cervical discectomy Hx of section Family History Father No problems noted. Mother Hypertension Social History Housing: House Patient Tobacco Use Status: Never used Tobacco e-Cigarette/Vaping Use: Never Used service: No Current occupational status: employed Cognitive needs: No Hearing needs: No Vision needs: Yes Questionnaire PHQ-9 Over the last 2 weeks, how often have you been bothered by any of the following problems? 1. Little interest or pleasure in doing things: not at all 2. Feeling down, depressed, or hopeless: not at all 3. Trouble falling or staying asleep, or sleeping too much: not at all 4. Feeling tired or having little energy: not at all 5. Poor appetite or overeating: not at all 6. Feeling bad about yourself - or that you are a failure or have let yourself or your family down: not at all 7. Trouble concentrating on things, such as reading the newspaper or watching television: not at all 8. Moving or speaking so slowly that other people could have noticed. Or the opposite - being so fidgety or restless that you have been moving around a lot more than usual: not at all 9. Thoughts that you would be better off or of hurting yourself in some way: not at all Total score: 0 Depression Screening Interpretation: Negative Depression Screening Done: Yes 01726 - PHQ-9 Billing: Yes Source: Developed by Drs. Ismael Bailey, Pierre Brody and colleagues, with an educational elfego from [employer]. Thrive Questionnaire Date Thrive assessed: 09/14/24 JOSE-7 AMB Questionnaire JOSE-7 Date JOSE - 7 assessed: 09/14/24 Feeling nervous, anxious, or on edge: 0 = Not at all Worrying too much about different things: 0 = Not at all Feeling afraid as if something awful might happen: 0 = Not at all Source: Developed by Drs. Ismael Bailey, Victorina Jones, Pierre Mcclellan and colleagues, with an educational elfego from [employer]. Review of Systems Const All systems reviewed & are unremarkable except as noted in HPI and below ENT Reports no additional complaints Card Reports no additional complaints Resp Reports no additional complaints GI Reports no additional complaints Reports no additional complaints Physical exam (Primary Care) Vital Signs: Last Vital Signs Pulse 74 05/15/25 11:31 Resp 17 05/15/25 11:31 BP 126/80 05/15/25 11:31 Pulse Ox 97 05/15/25 11:31 Oxygen Delivery Method Room Air 05/15/25 11:31 BMI result Body Mass Index 23.2 Tobacco/Smoking Status: Tobacco use Status Tobacco use date assessed 05/15/25 05/15/25 11:34 Patient Tobacco Use Status Never used Tobacco 05/15/25 11:34 e-Cigarette/Vaping Use Never Used 05/15/25 11:34 PHQ-9: PHQ-9 Score PHQ-9: Total score 0 05/15/25 11:49 Depression Screening Interpretation: Negative Thrive Assessment: Date of Thrive Assessment Date Thrive assessed 09/14/24 05/15/25 11:34 Const General: no acute distress Eyes General: appearance normal, both eyes and all related structures Neck Neck: Yes supple Resp Effort & Inspection: normal respiratory effort Auscultation: clear to auscultation bilaterally Cardio Rhythm: regular rhythm Heart sounds: S1 normal heart sound present and S2 normal heart sound present GI Inspection: Yes normal to inspection Palpation (GI): Soft to palpation Coding Level of Care Code Est Pt Level 3 (36259) Diagnoses HTN (hypertension) I10 Additional Codes PHQ-9 - 83646 - PHQ-9 Billing: Yes ([id number]) Assessment & Plan Assessment & Plan (1) HTN (hypertension): Comment: History of white coat Code(s): I10 - Essential (primary) hypertension Category: Medical Plan: Start 5 mg of lisinopril. Low-sodium diet regular physical activity discussed with the patient follow-up in 6 weeks Medications: New lisinopril 5 mg PO DAILY 90 tabs 0RF lisinopril 5 mg PO DAILY 90 tabs 0RF
--- OUTSIDE RECORDS SUMMARY | 2025-05-15 15:33 | XMS_ITS | Patient Health Record ---
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 [employer] Section Notes: Nonsmoker; no sig alcohol Nonsmoker; no sig alcohol Problems Problem Type SNOMED Code ICD Code Onset Dates Problem Status W/U Status Risk Notes Problem Colon cancer screening (888042861) Colon cancer screening (Z12.11) Active confirmed Problem Screening for malignant neoplasm of colon (680904682) Encounter for screening for malignant neoplasm of colon (Z12.11) Active confirmed Problem Diverticular disease of colon (126598960) Diverticulosis of large intestine without perforation or abscess without bleeding (K57.30) Active confirmed Problem Preprocedural examination (767617642214956) Preprocedural examination (Z01.818) Active confirmed Problem Family History of Cancer of Colon (Situation) (188497803) Family history of colon cancer (Z80.0) Active confirmed Problem Essential hypertension (34633260) Hypertension, unspecified type (I10) Active confirmed Plan Of Treatment Future Test Test Name Order Date COLONOSCOPY 07/27/2018 COLONOSCOPY 06/23/2023 Insurance Providers Payer Name Payer Address Payer Phone Subscriber Number Group Number Insured Name Patient Relationship to Insured Coverage Start Date Coverage End Date [facility] [address] [place] [phone] [id number] CHANDAN HARRY Self - patient is the insured Medical (General) History Medical History History ICD Code Denies [place],DM,CVA,Lung disease,renal dise ase Kidney stones-ESWL Screening colonoscopy in August of 2018 w ith removal of a hyperplastic polyp Surgical History Surgery Date(Month/Year) 1998,2002 C-spine disc surgery C6/C7 2016 LE vein surgery scheduled for latter par august
--- OUTSIDE RECORDS SUMMARY | 2025-05-15 15:33 | XMS_ITS | Clinical Summary ---
Author Organization [facility] Address [address] [place] [address] Phone Care Team Providers Care Executive Administrative Assistant Name Role Phone Pcp, Unknown Primary Care [...] topic Medical Devices Not on file [facility] Member Subscriber Plan / Payer (Ef fective 2021-Present) Name:Hilary Colón Relation to Subscriber:Self Name:Hilary Colón Payer ID:Not on file Type:PPO Address: [place] [id number] [facility] PPO EPO PHCS [facility] PPO EPO S PPO EPO [facility] PPO PHCS Member Subscriber Plan / Payer (Ef fective 2021-) Name:Hilary Colón Relation to Subscriber:Self Name:Hilary Colón Payer ID:Not on file Type:PPO Address: [address] PPO EPO [facility] PPO PHCS [facility] PPO EPO Care Teams Executive Administrative Assistant Relationship Specialty Start Date End Date Pcp, Unknown PCP - General 11/28/24 Additional Source Comments The information contained in this document represents components of the legal health record. It is not the complete legal health record.[facility]
== END 2025-05-15 12:03 | disposition home or self-care (01) ==
LOC: HO.HMCC 11:28
PROVIDERS: PCP Internal Medicine; Visit Provider Internal Medicine
DX: I10 Essential (primary) hypertension (principal)

== ENCOUNTER → 2025-05-15 11:28 | Outpatient (BNVA) | payer BC, SELFPAY | PROVIDERS: PCP Internal Medicine; Visit Provider Internal Medicine | DX: I10 Essential (primary) hypertension (principal) | CPT/HCPCS: 96127 ==